=== PATIENT | male | born 1945 | race Caucasian/White ===

== ENCOUNTER 2019-04-16 12:27 | Outpatient (CLI) | payer MEDICARE, SELFPAY ==
[2019-04-19 13:21] LABS: Lyme Disease Ab (IgM), Blot Negative (Negative); Lyme Disease Ab(IgG), Blot Negative (Negative)
== END 2019-04-16 12:28 | disposition home or self-care (01) ==
PROVIDERS: PCP Internal Medicine; Visit Provider Internal Medicine
DX: A69.22 Other neurologic disorders in Lyme disease (principal)
CPT/HCPCS: 36415; 82607; 86617

== ENCOUNTER 2019-08-25 09:32 | Outpatient (CLI) | payer MEDICARE, SELFPAY ==
--- NOTE | 2019-08-25 10:30 | NEURO_ITS ---
Patient Number: [id number] Impression: # Complains of left lower extremity weakness. 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 # Needle/EMG exam showed neurogenic changes in muscles including the Quadriceps. # Clinical correlation recommended; Higher involvement needs to be ruled out. Nerve Conduction Studies Anti Sensory Summary Table Stim Site NR Peak (ms) P-T Amp (?V) Site1 Site2 Delta-P (ms) Dist (cm) Srinivasa (m/s) Left Sup Fibular Anti Sensory (Ant Lat Mall) 14 cm 3.6 22.5 14 cm Ant Lat Mall 3.6 16.0 44 Left Sural Anti Sensory (Lat Mall) Calf 3.7 28.0 Calf Lat Mall 3.7 16.0 43 Motor Summary Table Stim Site NR Onset (ms) O-P Amp (mV) Site1 Site2 Delta-0 (ms) Dist (cm) Srinivasa (m/s) Left Peroneal Motor (Vastus Med) Ankle 4.5 0.8 Popit Ankle 13.6 42.0 31 Popit 18.1 0.8 Left Tibial Motor (Abd Ojeda Brev) Ankle 4.9 1.6 Knee Ankle 14.6 48.0 33 Knee 19.5 1.2 F Wave Studies NR F-Lat (ms) L-R F-Lat (ms) Left Peroneal (Mrkrs) (EDB) 59.77 Left Tibial (Mrkrs) (Abd Hallucis) 61.46 EMG Side Muscle Nerve Root Ins Act Fibs Amp Dur Recrt Comment Left AntTibialis Dp Br Fibular L4-5 Nml Nml Nml >12ms Reduced Left Gastroc Tibial S1-2 Nml Nml Nml >12ms Reduced Left Fibularis Long Sup Br Fibular L5-S1 Nml Nml Nml Nml Reduced Left Flex Dig Long Tibial L5-S2 Nml Nml Nml Nml Nml Left Ext Dig Brev Dp Br Fibular L5, S1 Nml Nml Nml >12ms Reduced Left AbdHallucis MedPlantar S1-2 Nml Nml Nml >12ms Reduced Left QuadratusFem QuadFemoris L4-5, S1 Nml Nml Nml >12ms Reduced MTDD
== END 2019-08-25 09:33 | disposition home or self-care (01) ==
PROVIDERS: PCP Internal Medicine; Visit Provider Internal Medicine
DX: A69.22 Other neurologic disorders in Lyme disease (principal); R53.1 Weakness
CPT/HCPCS: 95886; 95908

== ENCOUNTER 2020-07-13 09:31 | Outpatient (CLI) | payer MEDICARE, SELFPAY ==
[2020-07-13 10:05] LABS: Basophils Percent Auto 1.2 % (0.2-1.2); Eosinophils Percent Auto 0.3 % (0-4.4); Hematocrit 36.4 % (42.0-52.0); Hemoglobin 12.4 g/dL (14.0-18.0); Immature Granulocyte Absolute 0.02 K/mm3 (0.00-0.031); Immature Granulocyte Percent A 0.6 % (0-0.5); Immature Platelet Fraction Pct 5.9 % (0.9-11.2); Lymphocytes Absolute Auto 1.59 K/mm3 (0.9-3.2); Lymphocytes Percent Auto 46.4 % (18.3-44.2); Mean Corpuscular HGB Conc 34.1 g/dl (32-36); Mean Corpuscular Hemoglobin 30.2 pg (26-34); Mean Corpuscular Volume 88.6 fl (80-100); Mean Platelet Volume 10.7 fl (7.4-10.4); Monocytes Absolute Auto 0.5 K/mm3 (0.1-0.6); Monocytes Percent Auto 15.7 % (2.6-8.5); Neutrophils Absolute Auto 1.2 K/mm3 (1.3-6.7); Neutrophils Percent Auto 35.8 % (45.5-73.1); Platelet Count Result 159 k/mm3 (150-375); Red Blood Count 4.11 M/mm3 (4.6-6.20); Red Cell Distribution Width 15.4 % (11.5-14.5); White Blood Count 3.4 K/mm3 (4.5-10.0)
[2020-07-13 10:16] LABS: Cholesterol 149 mg/dL (0-200); HDL Direct 47 mg/dL; Triglycerides 109 mg/dL (<150)
[2020-07-13 10:27] LABS: LDL Cholesterol Direct 61 mg/dL
[2020-07-13 11:06] LABS: Free T4 Free Thyroxine 1.12 ng/mL (0.78-2.19)
== END 2020-07-13 09:32 | disposition home or self-care (01) ==
PROVIDERS: PCP Internal Medicine; Visit Provider Internal Medicine
DX: E78.00 Pure hypercholesterolemia, unspecified (principal); N42.9 Disorder of prostate, unspecified; R97.20 Elevated prostate specific antigen [PSA]
CPT/HCPCS: 36415; 80061; 84153; 84439; 84443; 85025; 85055

== ENCOUNTER 2020-08-21 11:57 | Emergency (ER) | payer MEDICARE, SELFPAY ==
[2020-08-21 12:09] VITALS: BP 112/76; PULSE 104; RESP 18; TEMP 38.1; O2SAT 99
--- NOTE | 2020-08-21 12:45 | ECG_ITS ---
Measurements Intervals [place] Rate: 97 P: 25 MO: 191 QRS: -31 QRSD: 98 T: 35 QT: 327 QTc: 417 Interpretive Statements SINUS RHYTHM BORDERLINE R WAVE PROGRESSION, ANTERIOR LEADS INFERIOR INFARCT, AGE INDETERMINATE ABNORMAL ECG Electronically Signed On 08-21-2020 15:23:53 CDT by Manuel Gandhi D.O.
--- NOTE | 2020-08-21 12:48 | ED.NAVMDI ---
HPI - Nausea/Vomiting/Diarrhea General Chief complaint: Nausea/Vomiting/Diarrhea Stated complaint: fever/dark urine/weakness/nausea/vomiting Source: patient and RN notes reviewed Limitations: no limitations History of Present Illness HPI Narrative: The vaccinated patient, who is active on few meds, presents with emesis. Patient states he has a shorter 1-day history of nonbilious emesis x2/day , associated with fever 102.5 , darkening urine. 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 He attributes onset to possibly being overheated while golfing the previous day. No cough, CP, loss of taste/smell, S OB. 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 Advised to go to higher-level care facility to higher level testing , because for early diagnosis of serious problems [azotemia, metabolic changes/dehydration, rhabdo, atypical appendicitis, etc], clear specific symptoms do not develope until later Related Data Home Medications Medication Instructions Recorded Confirmed atorvastatin 08/21/20 eszopiclone mg 08/21/20 Allergies Allergy/AdvReac Type Severity Reaction Status Date / Time No Known Allergies Allergy Unknown Verified 04/10/07 20:17 Review of Systems Review of Systems: Narrative: General/Constitutional: No weight loss, REPORTS fever Eyes: N0: Redness,discharge Ears/Nose/Throat: No: Epistaxis,ear discharge Respiratory: Denies: Hemoptysis Gastrointestinal: REPORTS vomiting, no Bleeding-rectal Skin: No Lumps, eruption Neurologic: No Focal Weakness,Sz Hematologic: Denies: Petechiae/Purpura Psychiatric: No: Suicida ideationl All Other Systems: Reviewed and Negative PMFSH Comments At time of signature, agree with nursing past medical, surgical, social and family history. There is no relevant family history pertinent to the presenting complaint Exam Narrative: Exam Narrative: General Appearance: Well appearing, No distress EYE: PERRLA, Conjunctiva clear Ears: External ear normal Nose: Normal nose Mouth/Throat: Normal appearing, Normal lips Neck: Supple Respiratory: Airway patent, No respiratory distress, CTA, right old thoracotomy scar Cardiovascular: RRR, 3/6 BETO Abdomen: Soft, Non-tender, No massess, No organomegaly (no rebound/ surgical signs), Hyperactive bowel sounds Musculoskeletal: Full ROM Skin: Warm, Dry Neurological: A&O x3, CN II-X intact Psychiatric: Normal mood, Normal affect Course Course Emergency Course: EKG sinus rhythm at 97, [place] 0.191, QRS 0.09, QTc 0.382; with old, inferior GA changes Q's in 3, aVF Vital Signs Vital signs: Vital Signs Temperature 100.5 F H 08/21/20 12:09 Pulse Rate 104 H 08/21/20 12:09 Respiratory Rate 18 08/21/20 12:09 Blood Pressure 112/76 08/21/20 12:09 Pulse Oximetry 99 08/21/20 12:09 Temperature 100.5 F H 08/21/20 12:09 Pulse Rate 104 H 08/21/20 12:09 Respiratory Rate 18 08/21/20 12:09 Blood Pressure 112/76 08/21/20 12:09 Pulse Oximetry 99 08/21/20 12:09 MDM - Nausea/Vomiting/Diarrhea Lab Data Labs: Urine Glucose Negative Reference Range: Negative Urine Bilirubin 1+ Reference Range: Negative Urine Ketone Negative Reference Range: Negative Urine Specific [place] 1.025 Reference Range:1.001-1.035 Urine Blood Negative Reference Range: Negative * * Urine pH 6.0 Reference Range:
[2020-08-21] MEDS: ONDANSETRON HCL ODT 4 MG TABLET PO (13:10)
== END 2020-08-21 13:33 | disposition left against medical advice (07) ==
PROVIDERS: Emergency Provider Emergency Medicine; PCP Internal Medicine
DX: R50.9 Fever, unspecified (principal); R11.11 Vomiting without nausea; R01.1 Cardiac murmur, unspecified; Z20.822 Contact with and (suspected) exposure to COVID-19
CPT/HCPCS: 81003; 87426; 93005; 99213; A9270; C9803; G0463

== ENCOUNTER 2020-08-22 14:55 | Outpatient (CLI) | payer MEDICARE, SELFPAY ==
[2020-08-22 16:05] LABS: Hematocrit 31.4 % (42.0-52.0); Hemoglobin 10.7 g/dL (14.0-18.0); Mean Corpuscular HGB Conc 34.1 g/dl (32-36); Mean Corpuscular Hemoglobin 29.3 pg (26-34); Mean Platelet Volume 12.6 fl (7.4-10.4); Platelet Count Result 46 k/mm3 (150-375); Red Blood Count 3.65 M/mm3 (4.6-6.20); Red Cell Distribution Width 15.2 % (11.5-14.5)
[2020-08-22 16:13] LABS: Alanine Aminotransferase 131 U/L (4-50); Alkaline Phosphatase 130 U/L (38-126); Anion Gap 7 mmol/L (8-16); Aspartate Amino Transferase 131 U/L (17-59); Bilirubin,Total 2.5 mg/dL (0.2-1.3); Blood Urea Nitrogen 22 mg/dL (9-20); Calcium 9.3 mg/dL (8.4-10.2); Carbon Dioxide 29 mmol/L (22-30); Chloride 96 mmol/L (98-107); Estimated Glomerular Filt Rate > 60; Glucose 129 mg/dL (75-110); Potassium 4.3 mmol/L (3.4-5.0); Sodium 132 mmol/L (137-145)
[2020-08-22 19:08] LABS: White Blood Count 1.9 K/mm3 (4.5-10.0)
[2020-08-22 19:14] LABS: Band Neutrophils Percent 2 % (0-6); Lymphocytes Absolute Manual 1.02 K/mm3 (1.1-4.5); Monocytes Absolute Manual 0.11 K/mm3 (0.1-0.90); Monocytes Percent Manual 6 % (3-9); Neutrophils Absolute Manual 0.76 K/mm3 (1.3-6.7); Neutrophils Percent Manual 38 % (46-73); Nucleated Red Blood Cells 1 %; Total Cells Counted 50
[2020-08-22 19:15] LABS: Anisocytosis 2+ (NORMAL); Platelet Estimate Decreased (Adequate)
== END 2020-08-22 14:56 | disposition home or self-care (01) ==
PROVIDERS: PCP Internal Medicine; Visit Provider Internal Medicine
DX: R50.9 Fever, unspecified (principal)
CPT/HCPCS: 36415; 80053; 85025; 85055; 87040

== ENCOUNTER 2020-08-23 13:53 | Outpatient (CLI) | payer MEDICARE, SELFPAY ==
[2020-08-23 17:40] LABS: Hepatitis B Surface Antigen Negative (Negative)
[2020-08-23 17:46] LABS: HAV RESULT Negative (Negative); Hepatitis B Core IgM Result Negative (Negative)
[2020-08-23 17:57] LABS: Hepatitis C Virus Antibody Negative (Negative)
[2020-08-26 15:59] LABS: CMV IgM Antibody <30.00 AU/mL (<30.00)
[2020-08-27 21:54] LABS: GGT 165 U/L (3-70)
== END 2020-08-23 13:54 | disposition home or self-care (01) ==
PROVIDERS: PCP Internal Medicine; Visit Provider Internal Medicine
DX: R74.01 Elevation of levels of liver transaminase levels (principal)
CPT/HCPCS: 36415; 80074; 82977; 86644; 86645

== ENCOUNTER 2020-08-30 12:11 | Outpatient (CLI) | payer MEDICARE, SELFPAY ==
[2020-08-30 13:00] LABS: Basophils Percent Auto 0.7 % (0.2-1.2); Hematocrit 31.4 % (42.0-52.0); Hemoglobin 10.2 g/dL (14.0-18.0); Immature Granulocyte Absolute 0.06 K/mm3 (0.00-0.031); Immature Granulocyte Percent A 4.1 % (0-0.5); Lymphocytes Absolute Auto 0.67 K/mm3 (0.9-3.2); Lymphocytes Percent Auto 45.9 % (18.3-44.2); Mean Corpuscular HGB Conc 32.5 g/dl (32-36); Mean Corpuscular Hemoglobin 29.5 pg (26-34); Mean Corpuscular Volume 90.8 fl (80-100); Mean Platelet Volume 11.1 fl (7.4-10.4); Monocytes Absolute Auto 0.2 K/mm3 (0.1-0.6); Neutrophils Absolute Auto 0.5 K/mm3 (1.3-6.7); Neutrophils Percent Auto 36.3 % (45.5-73.1); Platelet Count Result 117 k/mm3 (150-375); Red Blood Count 3.46 M/mm3 (4.6-6.20); Red Cell Distribution Width 16.5 % (11.5-14.5)
[2020-08-30 13:09] LABS: Alanine Aminotransferase 116 U/L (4-50); Alkaline Phosphatase 113 U/L (38-126); Aspartate Amino Transferase 59 U/L (17-59); Bilirubin,Total 1.3 mg/dL (0.2-1.3)
[2020-08-30 14:17] LABS: White Blood Count 1.5 K/mm3 (4.5-10.0)
== END 2020-08-30 12:12 | disposition home or self-care (01) ==
LOC: ANHLAB 12:13
PROVIDERS: PCP Internal Medicine
DX: D72.819 Decreased white blood cell count, unspecified (principal); K76.89 Other specified diseases of liver
CPT/HCPCS: 36415; 80076; 85025

== ENCOUNTER 2020-09-01 21:42 | Inpatient (IN) | payer MEDICARE, SELFPAY ==
--- NOTE | ~2020-09-01 | CT_ITS ---
EXAMINATION: CT chest abdomen pelvis wo con DATE: 09/01/2020 23:32 INDICATION: Neutropenia. Fever. TECHNIQUE: Computed tomography (CT) of the chest, abdomen, and pelvis was performed without intraveno us contrast. Automated exposure control and iterative reconstruction technique were employed. The dos e-length product was 1366.97 mGy-cm. COMPARISON: None FINDINGS: CHEST CT: Mild emphysema. No pneumonia, pulmonary edema or other pulmonary infiltrates, pleural effusion or pne umothorax. Heart size is normal. Atherosclerotic coronary artery calcification is. Aortic valve calci fication. No pericardial effusion. No pathologically enlarged thoracic lymphadenopathy. Multiple old healed right rib fractures. ABDOMEN/PELVIS CT: Liver, gallbladder, pancreas, bilateral adrenal glands and right kidney are normal. Bilateral approxi mately 1 cm low-attenuation renal cysts. 1 mm nonobstructing stone at a lower pole calyx of the left kidney. Splenomegaly measuring 17.5 cm in craniocaudal length. Bowels including the appendix are norm al. Bladder is normal. Prostatomegaly. No free intraperitoneal gas or fluid. No pathologically enlarg ed abdominal or pelvic lymphadenopathy. Small fat-containing left inguinal hernia. Severe lower lumba r spondylosis. IMPRESSION: 1. Splenomegaly. No other acute intrathoracic, abdominal or pelvic process. 2. 1 mm nonobstructing left renal stone. 3. Small fat-containing left inguinal hernia. 4. Mild emphysema. Reviewed, dictated and finalized at location A.
--- NOTE | ~2020-09-01 | XR_ITS ---
EXAMINATION: XR chest 2V DATE: 09/01/2020 22:52 INDICATION: Fever, weakness and nausea TECHNIQUE: frontal and lateral views of the chest were obtained. COMPARISON: Chest radiograph dated 11/21/2004 FINDINGS: The lungs remain clear with no focal airspace opacities, pulmonary edema, pleural effusion or pneumot horax. The cardiomediastinal silhouette is normal. And seen are multiple old healed right-sided rib f ractures. IMPRESSION: 1. No acute cardiopulmonary disease. Reviewed, dictated and finalized at location A.
--- NOTE | ~2020-09-01 | BM_ITS ---
EXAMINATION: CCL bone marrow asp w bx diag ORDER COMPLETED DATE: 09/05/2020 13:18 INDICATION: Pancytopenia TECHNIQUE: A time-out was performed to verify the patient's name, date of , and procedure to b e performed. The procedure including the risks, benefits, and alternatives was discussed with the pat ient. Risks discussed included bleeding and infection. The patient understood the risks and agreed to proceed. The skin overlying the right posterior iliac spine was prepped and draped in usual sterile fashion. Anesthetic was administered with 1% lidocaine subcutaneously. Systemic analgesia was provide d with 50 mcg fentanyl IV. An 11 gauge needle was inserted into the ilium with fluoroscopic guidance. Bone marrow was aspirated. An 8 gauge needle was then inserted into the ilium with fluoroscopic guid ance. A core bone marrow biopsy was obtained. There were no immediate complications. Fluoroscopy expo sure time was 0.1 minutes. The total number of images was 10. FINDINGS: Real-time fluoroscopy demonstrates a marker overlying the right posterior iliac spine. IMPRESSION: 1. Successful fluoro-guided bone marrow aspiration. 2. Successful fluoro-guided bone marrow core biopsy. Reviewed, dictated and finalized at location A.
[2020-09-01 21:46] VITALS: BP 112/58; PULSE 105; RESP 18; TEMP 39.2; O2SAT 98
[2020-09-01 22:06] LABS: Hematocrit 30.8 % (42.0-52.0); Hemoglobin 10.3 g/dL (14.0-18.0); Immature Platelet Fraction Pct 7.9 % (0.9-11.2); Mean Corpuscular HGB Conc 33.4 g/dl (32-36); Mean Corpuscular Hemoglobin 29.3 pg (26-34); Mean Corpuscular Volume 87.7 fl (80-100); Mean Platelet Volume 10.7 fl (7.4-10.4); Platelet Count Result 84 k/mm3 (150-375); Red Blood Count 3.51 M/mm3 (4.6-6.20); Red Cell Distribution Width 16.4 % (11.5-14.5)
[2020-09-01 22:11] LABS: White Blood Count 0.9 K/mm3 (4.5-10.0)
[2020-09-01 22:15] LABS: Alanine Aminotransferase 83 U/L (4-50); Albumin Level 4.2 g/dL (3.5-5.1); Alkaline Phosphatase 126 U/L (38-126); Anion Gap 12 mmol/L (8-16); Aspartate Amino Transferase 65 U/L (17-59); Bilirubin,Total 2.1 mg/dL (0.2-1.3); Blood Urea Nitrogen 16 mg/dL (9-20); Calcium 9.2 mg/dL (8.4-10.2); Carbon Dioxide 26 mmol/L (22-30); Chloride 92 mmol/L (98-107); Estimated CRCL calculation 69 ml/min; Estimated Glomerular Filt Rate > 60; Glucose 122 mg/dL (65-110); Potassium 4.3 mmol/L (3.4-5.0); Sodium 130 mmol/L (137-145)
[2020-09-01 22:24] LABS: Eosinophils Absolute Manual 0.39 K/mm3 (0.02-0.5); Eosinophils Percent Manual 44 % (0-4); Metamyelocytes Percent 32 %; Monocytes Absolute Manual 0.03 K/mm3 (0.1-0.90); Monocytes Percent Manual 4 % (3-9); Neutrophils Percent Manual 4 % (46-73); Promyelocytes Percent 16 %; Total Cells Counted 25
[2020-09-01 22:25] LABS: Anisocytosis 2+ (NORMAL); Atypical Lymphocytes Present; Platelet Estimate Decreased (Adequate)
[2020-09-01 22:26] VITALS: BP 132/58; PULSE 106; RESP 29; TEMP 38.2; O2SAT 96
--- NOTE | 2020-09-01 23:35 | PM.IMHP ---
H&P: HPI History of Present Illness Date/Time: 09/01/20 23:35 Chief Complaint: fever Narrative: This is a 74-year-old male with no significant past medical history the presented to the emergency room due to persistent fevers for the last 15 days or so patient had been to the urgent care and to his primary care physician who had ordered some blood work after receiving the blood work results he had been scheduled for CT of abdomen and pelvis according to the patient. Patient states that he has been having night sweats as well has had roughly 2 lb weight loss in the last 2 weeks he denies any muscle aches or pains, denies any rash, denies any sore throat, no nausea no vomiting no diarrhea, no cough no sputum production no shortness of breath, no palpitations he has been feeling fatigued. he had been in his usual state of health prior to these he denies use of any medication or any exposure to chemical substances or radiation in the past. Blood work showed decreased number of neutrophils and platelets and hemoglobin also patient states that he felt dehydrated 2 weeks ago and was urinating dean urine for several days . Review of Systems Review of Systems: Narrative: fever Constitutional: Constitutional: Reports fatigue, Reports fever(s) and Reports night sweats Eyes: Eyes: Denies change in vision ENT: Denies dysphagia, Denies nasal congestion, Denies nasal discharge, Denies nasal obstruction and Denies odynophagia Cardiovascular: Cardiovascular: Denies chest pain, Denies irregular heart rhythm, Denies claudication, Denies lightheadedness, Denies palpitations, Denies dyspnea and Denies orthopnea Respiratory: Respiratory: Denies cough and Denies dyspnea Gastrointestinal: Gastrointestinal: Denies diarrhea, Denies nausea and Denies vomiting Genitourinary: Genitourinary: Reports no additional male genitourinary complaints Musculoskeletal: Musculoskeletal: Denies back pain, Denies myalgias, Denies arthralgias, Denies joint swelling, Denies muscle cramps and Denies muscle weakness Integumentary/Breasts: Skin/Breast: Denies rash Neurologic: Denies focal weakness, Denies Sensory deficit (Neuro) and Denies weakness Psychiatric: Psychiatric: Reports no additional psychiatric complaints Endocrine: Endocrine: Reports no additional endocrine complaints Hematologic/Lymphatic: Hematologic/Lymphatic: Reports no additional hematologic/lymphatic complaints Allergic/Immunologic: Allergic/Immunologic: Reports no additional allergic/immunologic complaints Meds Home Medications and Allergies Home Medications Medication Instructions Recorded Confirmed Type atorvastatin 08/21/20 History Allergies Allergy/AdvReac Type Severity Reaction Status Date / Time No Known Allergies Allergy Unknown Verified 09/01/20 22:27 Vital Signs Vital Signs - 24 hr 09/01/20 21:46 09/01/20 22:26 Temperature 102.5 F H 100.7 F H Pulse Rate 105 H 106 H Respiratory Rate 18 29 H Blood Pressure 112/58 L 132/58 L Pulse Oximetry 98 96 Exam Narrative: Exam Narrative: patient is laying in gurney Const: General: cooperative, comfortable, no acute distress, well developed, alert, awake and other ( well-appearing) Nutritional Appearance: average body habitus Orientation/consciousness: patient oriented x3 HENMT: Head: normal to inspection, normocephalic and atraumatic Ears: hearing grossly normal bilaterally General nose exam: Normal external nose present Face and sinus: normal facial exam Mouth: Yes Normal oral and palatal mucosa present Eyes: General: appearance normal, both eyes and all related structures Sclera: sclerae normal Pupils: Equal, round and reactive pupils present EOM: EOMs intact bilaterally Neck: Neck: full ROM, no lymphadenopathy, supple, no lymphadenopathy noted and no JVD Thyroid: thyroid normal Lymphatic: no lymphadenopathy noted Resp: Effort & Inspection: normal respiratory effort and able to speak in complete sentences
--- NOTE | 2020-09-01 23:44 | ED.FEVER ---
HPI - Fever General Chief Complaint: Fever Stated Complaint: Fever Time Seen by Provider: 09/01/20 22:30 Source: patient Mode of arrival: ambulatory Limitations: no limitations History of Present Illness HPI Narrative: 75-year-old male Basically healthy Here for fever Began to have intermittent fevers about 2 weeks ago No focal symptoms to suggest a source that he recalls, does not have a cough diarrhea abdominal pain urinary symptoms etc. No history of any environmental exposure or tick bite mosquito bite anything like that that he remembers either He was seen at an urgent care shortly after the onset and had an unremarkable physical exam but did not go to the hospital for any labs He did subsequently have a couple of visits with his primary care doctor and had some outpatient cultures sent which were negative and had chemistries with very modest abnormalities of his LFTs done and had CBCs done which are establishing a downward trend in white cells and platelets Because his most recent white count was 1.5 and he was febrile again today he was directed to the ED, where we confirmed the fever and a white count of only 900 He does not take any medications that ought to be associated with bone marrow suppression There are still no focal symptoms to suggest a source of fever Related Data Home Medications Medication Instructions Recorded Confirmed atorvastatin 08/21/20 Allergies Allergy/AdvReac Type Severity Reaction Status Date / Time No Known Allergies Allergy Unknown Verified 09/01/20 22:27 Review of Systems Review of Systems: All systems reviewed & are unremarkable except as noted in HPI and below Constitutional: Constitutional: Reports no additional constitutional complaints, Reports chills, Reports fatigue, Reports fever(s) and Denies headache(s) Eyes: Eyes: Reports no additional eye complaints and Denies change in vision ENT: Denies dysphagia, Denies headache(s) and Denies sore throat Cardiovascular: Cardiovascular: Denies chest pain and Denies dyspnea Respiratory: Respiratory: Denies cough and Denies dyspnea Gastrointestinal: Gastrointestinal: Denies abdominal pain, Denies diarrhea and Denies vomiting Genitourinary: Genitourinary: Denies dysuria and Denies urinary frequency Musculoskeletal: Musculoskeletal: Reports myalgias, Denies deformity, Denies arthralgias, Denies joint swelling and Denies numbness Integumentary/Breasts: Skin/Breast: Denies erythema, Denies rash and Denies wounds Neurologic: Denies headache(s), Denies focal weakness and Denies numbness Psychiatric: Psychiatric: Reports no additional psychiatric complaints Endocrine: Endocrine: Reports no additional endocrine complaints Hematologic/Lymphatic: Hematologic/Lymphatic: Reports no additional hematologic/lymphatic complaints Allergic/Immunologic: Allergic/Immunologic: Reports no additional allergic/immunologic complaints Exam Const: General: cooperative, healthy appearing, no acute distress and alert Orientation/consciousness: patient oriented x3 (alert) HENMT: Head: normal to inspection, normocephalic, atraumatic and no contusions Ears: external ears normal General nose exam: no epistaxis Mouth: Yes Normal oral and palatal mucosa present and Yes moist mucous membranes Eyes: Conjunctivae: conjunctivae normal and normal conjunctivae EOM: EOMs intact bilaterally Neck: Neck: normal visual inspection, no lymphadenopathy, no meningeal signs, supple and no JVD Resp: Effort & Inspection: normal respiratory effort and not labored Auscultation: clear to auscultation bilaterally, no rales, no rhonchi, no wheezes and other (BS =) Cardio: Rate: regular rate Rhythm: regular rhythm Heart sounds: Murmur heart sound present (2/6 to 3/6 systolic murmur over the entire precordium) GI: Inspection: non-distended GI Palp: Yes Soft to palpation and No Tenderness to palpation present (GI) Other: No hepatosplenomegaly : General: Y
[2020-09-01 23:50] VITALS: BP 137/72; PULSE 106; RESP 26; O2SAT 97
[2020-09-01 23:56] LABS: Immature Reticulocyte Fraction 11.4 % (3.0-15.9); Reticulocyte Hemoglobin Conten 33.1 pg (28.2-35.7); Reticulocyte Percent 5.23 % (0.7-4.3); Reticulocytes Absolute 0.17 B/L (32.2-175.7)
[2020-09-01 23:58] LABS: Creatine Kinase 32 U/L (55-170); Lactate Dehydrogenase 979 U/L (313-618)
[2020-09-01 23:59] LABS: Lactic Acid Reflex 1.2 mmol/L (0.7-2.1)
[2020-09-02] VITALS (8 sets, daily range): BP systolic 103–135; BP diastolic 60–73; PULSE 86–103; RESP 16–20; TEMP 36.4–39.7; O2SAT 100; BMI 25.2
[2020-09-02 00:01] LABS: Add Urine Microscopic? YES; Appearance Urine Clear (Clear); Bilirubin Urine Negative (Negative); Blood Urine Negative (Negative); Color Urine Amber (Yellow); Glucose Urine UA Negative (Negative); Ketones Urine Trace mg/dL (Negative); Leukocyte Esterase Ur Negative LEU/UL (Negative); Mucus Urine Rare /lpf; Nitrate Urine Negative (Negative); Protein Urine 1+ mg/dL (Negative); RBC Urine 0-2 /hpf (0-2); WBC Urine 0-3 /hpf
[2020-09-02] MEDS: LACTATED RINGERS 1,000 ML 999 ML IV CONT (00:24)
[2020-09-02 00:32] LABS: Iron 28 ug/dL (49-181)
[2020-09-02 00:42] LABS: Percent Iron Saturation 9 % (20-50)
--- NOTE | 2020-09-02 01:11 | ADMGEN ---
This patient, Mir Adrian, was admitted to 2 Medical Room [facility]- @ 0100. Patient/family oriented to hospital policies and general routines including ID bracelet, bed and alarms, visiting hours, pain management, procedures, bathroom and other care routines, personal items, smoking policy, room service/diet, and visiting hours. Information on how to activate the Rapid Response Team has been discussed. Patient/Family are encouraged to report perceived risks to care and to ask questions if they do not understand what they are told or what they should do.
[2020-09-02] MEDS: LACTATED RINGERS 1,000 ML 150 ML IV CONT (01:12)
[2020-09-02] MEDS: ACETAMINOPHEN 325 MG TABLET 650 MG PO ×2 (01:13→18:31)
[2020-09-02 01:34] LABS: Transferrin 211 mg/dL (206-381)
--- NOTE | 2020-09-02 06:00 | ECHO_ITS ---
Patient Info Name: Mir Zamarripa Range Age: 75 years : 1945 Gender: Male Ht: 72 in Wt: 202 lbs BSA: 2.17 m2 HR: 108 bpm BP: 135 / 73 mmHg Heart Rhythm: Sinus Rhythm, Tachycardia Technical Quality: Good Exam Date: 09/02/2020 7:40 AM Exam Location: [facility] Exam Room: 240 Patient Status: Inpatient Admit Date: 09/01/2020 Staff Ordering Physician: Brandon Noel MD Speech Therapy Assistant: Gabriela Burnham RDCS Attending Provider: Gabriel Blair PA-C Referring Physician: Bert DYE; Exam Type: CA echo doppler color flow Study Info Indications - murmur fever Complete two-dimensional, color flow and Doppler transthoracic echocardiogram is performed. Summary 1. Complete two-dimensional, color flow and Doppler transthoracic echocardiogram is performed. 2. Left ventricular chamber dimension is normal. 3. Left ventricular systolic function is normal, estimated at 65-70%. 4. There is mildly increased left ventricular wall thickness. 5. The aortic valve is not well visualized although probable trileaflet.. 6. There is mild aortic valve stenosis with a peak velocity of 353 cm/s, mean gradient of 31 mmHg, and aortic valve area of 1.7 cm2. Mild calcification of aortic valve leaflets. 7. There is mild aortic valve regurgitation. 8. Cannot rule out aortic valve vegetation visualized. Measured 0.8cmx0.7cm echodense structure unable to be further characterized, however, vegetation a consideration possibly associated with noncoronary cusp. 9. There is trace mitral valve regurgitation. 10. The mitral valve has normal leaflets. No clear mobile echodensity noted. 11. Recommend transesophageal echocardiogram if clinically indicated. Recommendations * Recommend transesophageal echocardiogram if clinically indicated. Left Ventricle Left ventricular chamber dimension is normal. Left ventricular systolic function is normal, estimated at 65-70%. There is mildly increased left ventricular wall thickness. The left ventricular diastolic function is grade I diastolic dysfunction. Right Ventricle Right ventricular chamber dimension is normal. Right ventricular systolic function is normal. Left Atria Left atrial chamber dimension is mildly enlarged. Right Atria Right atrial chamber dimension is mildly enlarged. Aortic Valve The aortic valve is not well visualized although probable trileaflet.. There is mild aortic valve stenosis with a peak velocity of 353 cm/s, mean gradient of 31 mmHg, and aortic valve area of 1.7 cm2. Mild calcification of aortic valve leaflets. There is mild aortic valve regurgitation. Cannot rule out aortic valve vegetation visualized. Measured 0.8cmx0.7cm echodense structure unable to be further characterized, however, vegetation a consideration possibly associated with noncoronary cusp. Pulmonic Valve The pulmonic valve is not well visualized. There is trace pulmonic regurgitation. Mitral Valve The mitral valve has normal leaflets. No clear mobile echodensity noted. There is trace mitral valve regurgitation. The mitral valve annulus is mildly calcified. Tricuspid Valve The tricuspid valve leaflets are normal. There is trace tricuspid valve regurgitation. Mild pulmonary hypertension, estimated pulmonary arterial systolic pressure is 36 mmHg. Pericardium/Pleural The pericardium appears normal. There is trivial pericardial effusion. Inferior Vena Cava Normal inferior vena cava with >50% collapse upon inspiration consistent with normal right atrial
[2020-09-02 07:58] LABS: Basophils Percent Auto 1.4 % (0.2-1.2); Hematocrit 27.7 % (42.0-52.0); Hemoglobin 9.2 g/dL (14.0-18.0); Immature Granulocyte Absolute 0.02 K/mm3 (0.00-0.031); Immature Granulocyte Percent A 2.8 % (0-0.5); Immature Platelet Fraction Pct 8.5 % (0.9-11.2); Lymphocytes Absolute Auto 0.23 K/mm3 (0.9-3.2); Lymphocytes Percent Auto 31.9 % (18.3-44.2); Mean Corpuscular HGB Conc 33.2 g/dl (32-36); Mean Corpuscular Hemoglobin 29.3 pg (26-34); Mean Corpuscular Volume 88.2 fl (80-100); Mean Platelet Volume 10.4 fl (7.4-10.4); Monocytes Absolute Auto 0.1 K/mm3 (0.1-0.6); Monocytes Percent Auto 11.1 % (2.6-8.5); Neutrophils Absolute Auto 0.4 K/mm3 (1.3-6.7); Neutrophils Percent Auto 52.8 % (45.5-73.1); Platelet Count Result 61 k/mm3 (150-375); Red Blood Count 3.14 M/mm3 (4.6-6.20); Red Cell Distribution Width 16.4 % (11.5-14.5)
[2020-09-02] MEDS: FAMOTIDINE 20 MG/2 ML VIAL IV PUSH ×2 (08:03→19:55)
[2020-09-02 08:06] LABS: White Blood Count 0.7 K/mm3 (4.5-10.0)
[2020-09-02 08:12] LABS: Anion Gap 7 mmol/L (8-16); Blood Urea Nitrogen 12 mg/dL (9-20); Calcium 8.4 mg/dL (8.4-10.2); Carbon Dioxide 28 mmol/L (22-30); Chloride 98 mmol/L (98-107); Estimated CRCL calculation 77 ml/min; Estimated Glomerular Filt Rate > 60; Glucose 111 mg/dL (65-110); Magnesium 1.8 mg/dL (1.6-2.3); Potassium 4.1 mmol/L (3.4-5.0); Sodium 133 mmol/L (137-145)
--- NOTE | 2020-09-02 09:11 | PM.IMPN ---
Progress Note: A&P Assessment and Plan (1) Pancytopenia with fever: Code(s): D61.818 - Other pancytopenia; R50.81 - Fever presenting with conditions classified elsewhere Status: Acute Assessment and Plan: Dr. Uribe consulted and appreciate rec. CT C/A/P shows splenomegaly. WBC, Hgb, platelets continue to drop. No s/sx of acute blood loss. Iron panel consistent with XIN. BCx pending Pt slightly tachycardic, afebrile this morning. Cont cefepime 2G IV Q8hr Await further rec from Heme/onc; appreciate input vitals as per unit protocol' Cont IV fluids Await Echo results Monitor (2) Fever of unknown origin: Code(s): R50.9 - Fever, unspecified Status: Acute Assessment and Plan: As above. Await further rec from Dr. Uribe. Will consider ID consultation if fevers persistent. (3) Neutropenia: Code(s): D70.9 - Neutropenia, unspecified Status: Acute Assessment and Plan: As above. neutrophilic count of 400 today. continue to monitor Subjective Date/time seen: 09/02/20 09:11 Interval history: Pt a pleasant 75 yo M without significant medical history who is seen in follow up today for pancytopenia with fever. Pt states he feels okay today, although did not get much sleep last night and is tired. His main complaint is constipation; req laxative; passing gas okay. Slightly feverish. No other complaints. Denies headaches, dizziness, lightheadedness, cp/palpitations, sob/cough, n/v/d, abd pain, dysuria, hematuria, cloudy urine, calf pain/swelling. Review of Systems Review of Systems: All systems reviewed & are unremarkable except as noted in HPI and below Exam Const: General: comfortable, no acute distress, well developed and alert Nutritional Appearance: well nourished Orientation/consciousness: patient oriented x3 HENMT: Head: normocephalic and atraumatic Ears: hearing grossly normal bilaterally and external ears normal General nose exam: Normal external nose present Eyes: General: appearance normal, both eyes and all related structures EOM: EOMs intact bilaterally Neck: Neck: normal visual inspection, trachea midline and supple Resp: Effort & Inspection: normal respiratory effort Auscultation: clear to auscultation bilaterally Cardio: Rate: tachycardic Rhythm: regular rhythm Heart sounds: S1 normal heart sound present, S2 normal heart sound present and Murmur heart sound present systolic GI: GI Palp: No abdominal tenderness and Yes Soft to palpation Auscultation: normal bowel sounds Skin: General skin exam: no rashes or lesions noted and pallor Neuro: General: patient oriented x3 Speech: normal speech Extrem: General: normal to inspection and no clubbing, cyanosis or edema Psych: Mental Status: mental status grossly normal Affect: normal affect Objective Data Vital Signs Vital Signs: Last Vital Signs Temp 37.1 C 09/02/20 06:00 Pulse 100 09/02/20 06:00 Resp 16 09/02/20 06:00 BP 124/65 09/02/20 06:00 Pulse Ox 100 09/02/20 06:00 Intake/Output Intake/Output: Intake & Output 08/30/20 08/31/20 09/01/20 09/02/20 23:59 23:59 23:59 23:59 Intake Total 1550 Output Total 500 Balance 1050 Meds/Results Medications: Active Medications Generic Name Dose Route Start Last Admin Trade Name Freq PRN Reason Stop Dose Admin Acetaminophen 650 mg 09/01/20 23:39 09/02/20 01:13 Acetaminophen 325 Mg Tablet PO 650 mg Q4H PRN Administration Mild Pain (1-3) or Fever Famotidine 20 mg 09/02/20 09:00 09/02/20 08:03 Famotidine 20 Mg/2 Ml Vial IV PUSH 20 mg Q12HR TANNER Administration Vancomycin HCl 1,500 mg in 500 mls @ 333.333 mls/hr 09/01/20 23:00 09/02/20 01:55 Vancomycin 1,500 Mg/D5w 500 Ml IVPB Infused Q18H TANNER Infusion Lactated Ringer's 1,000 mls @ 75 mls/hr 09/01/20 23:40
[2020-09-02] MEDS: LACTATED RINGERS 1,000 ML 75 ML IV CONT (09:43)
[2020-09-03] VITALS (9 sets, daily range): BP systolic 105–128; BP diastolic 57–63; PULSE 105–109; RESP 16–20; TEMP 36.4–39.1; O2SAT 95–100
[2020-09-03] MEDS: ACETAMINOPHEN 325 MG TABLET 650 MG PO ×2 (05:16→20:27)
[2020-09-03] MEDS: LACTATED RINGERS 1,000 ML 75 ML IV CONT (05:17)
[2020-09-03 06:40] LABS: Hematocrit 25.8 % (42.0-52.0); Hemoglobin 8.8 g/dL (14.0-18.0); Immature Granulocyte Absolute 0.01 K/mm3 (0.00-0.031); Immature Platelet Fraction Pct 11.2 % (0.9-11.2); Lymphocytes Absolute Auto 0.17 K/mm3 (0.9-3.2); Lymphocytes Percent Auto 34.7 % (18.3-44.2); Mean Corpuscular HGB Conc 34.1 g/dl (32-36); Mean Corpuscular Hemoglobin 29.5 pg (26-34); Mean Corpuscular Volume 86.6 fl (80-100); Mean Platelet Volume 11.5 fl (7.4-10.4); Monocytes Absolute Auto 0.1 K/mm3 (0.1-0.6); Monocytes Percent Auto 10.2 % (2.6-8.5); Neutrophils Absolute Auto 0.3 K/mm3 (1.3-6.7); Neutrophils Percent Auto 51.1 % (45.5-73.1); Platelet Count Result 37 k/mm3 (150-375); Red Blood Count 2.98 M/mm3 (4.6-6.20); Red Cell Distribution Width 15.9 % (11.5-14.5)
[2020-09-03 06:48] LABS: White Blood Count 0.5 K/mm3 (4.5-10.0)
[2020-09-03 06:49] LABS: Alanine Aminotransferase 60 U/L (4-50); Albumin Level 3.2 g/dL (3.5-5.1); Alkaline Phosphatase 91 U/L (38-126); Anion Gap 8 mmol/L (8-16); Aspartate Amino Transferase 63 U/L (17-59); Bilirubin,Total 1.8 mg/dL (0.2-1.3); Blood Urea Nitrogen 14 mg/dL (9-20); Calcium 8.4 mg/dL (8.4-10.2); Carbon Dioxide 25 mmol/L (22-30); Chloride 94 mmol/L (98-107); Estimated CRCL calculation 86 ml/min; Estimated Glomerular Filt Rate > 60; Glucose 112 mg/dL (65-110); Magnesium 1.7 mg/dL (1.6-2.3); Potassium 3.5 mmol/L (3.4-5.0); Sodium 127 mmol/L (137-145)
--- NOTE | 2020-09-03 07:46 | PM.IMPN ---
Progress Note: A&P Assessment and Plan (1) Pancytopenia with fever: Code(s): D61.818 - Other pancytopenia; R50.81 - Fever presenting with conditions classified elsewhere Status: Acute Assessment and Plan: Hematology service has been consulted with pending recommendations.. CT C/A/P shows splenomegaly. WBC, Hgb, platelets continue to drop. No s/sx of acute blood loss. Iron panel consistent with XIN. He will likely need viral studies. Check HIV status. Cultures are pending. Cont cefepime Along with vancomycin 2G IV Q8hr vitals as per unit protocol' stop IV fluids Await Echo results Monitor Maintained neutropenic precautions. (2) Fever of unknown origin: Code(s): R50.9 - Fever, unspecified Status: Acute Assessment and Plan: As above. Await further rec from Hematology service. infectious disease service has been consulted with pending recommendations. He will likely need viral studies. HIV has been ordered. Continue to monitor fever curve and leukocyte count. Follow cultures. (3) Neutropenia: Code(s): D70.9 - Neutropenia, unspecified Status: Acute Assessment and Plan: As above. continue to monitor (4) Hyponatremia: Code(s): E87.1 - Hypo-osmolality and hyponatremia Status: Acute Assessment and Plan: Serum sodium is 127 today. Continue to monitor. He is asymptomatic. (5) Constipation: Code(s): K59.00 - Constipation, unspecified Status: Acute Assessment and Plan: Will switch MiraLax to give on the daily basis. Will give 1 dose of lactulose. If he continued to have constipation then may get a KUB tomorrow and if there is no signs of obstruction then give Dulcolax /lactulose again in the a.m.. Subjective Date/time seen: 07/18/21 07:46 Interval history: Pt a pleasant 75 yo M without significant medical history who is seen in follow up today for pancytopenia with fever. He still spiking fever with the T-max of 38.4?. He is complaining of abdominal discomfort because of constipation is he has not moved his bowel in the last 7 days. It is not tender. He denied have any nausea vomiting. He denied have any cough shortness of breath chest pain. He denied have any rash or any urinary symptoms. He denied have any recent travel. Review of Systems Review of Systems: All systems reviewed & are unremarkable except as noted in HPI and below Exam Narrative: Exam Narrative: patient is laying in rney Const: General: cooperative, comfortable, no acute distress and other ( well-appearing) HENMT: General nose exam: no epistaxis Neck: Neck: supple and no lymphadenopathy noted Resp: Effort & Inspection: normal respiratory effort, able to speak in complete sentences and not labored Auscultation: clear to auscultation bilaterally, no crackles, no rales, no rhonchi, no wheezes and other (BS =) Cardio: Jugular venous distension: no JVD Rate: regular rate and tachycardic Heart sounds: S1 normal heart sound present, S2 normal heart sound present and Murmur heart sound present systolic GI: Inspection: normal to inspection and non-distended Other: No hepatosplenomegaly Skin: General skin exam: no jaundice and pallor Neuro: General: patient oriented x3, moves all extremities, no meningeal signs and CN's II-XI intact bilaterally Extrem: General: no pedal edema Psych: Mental Status: mental status grossly normal Affect: normal affect Attitude: cooperative Objective Data Vital Signs Vital Signs: Vital Signs - 24 hr 09/02/20 17:36 09/02/20 18:31 09/02/20 19:31 Temperature 37.3 C 38.1 C H 36.4 C L Pulse Rate Respiratory Rate Blood Pressure Pulse Oximetry 09/02/20 22:00 09/03/20 05:16 09/03/20 06:00 Temperature 36.4 C L 38.1 C H 38.2 C H Pulse Rate 8
[2020-09-03] MEDS: LACTULOSE 20 GM/30 ML UDC PO (09:11)
[2020-09-03] MEDS: polyethylene glycoL 3350 17 GM POWD.PACK PO (09:11)
[2020-09-03] MEDS: MAGNESIUM SULF 2 GM/WATER 50ML 2 GM/50 ML BAG IVPB (09:11)
--- NOTE | 2020-09-03 17:25 | WPDCN ---
Assessment and Plan Additional Plan 1. fever of unknown origin going on for 2 weeks associated with pancytopenia and splenomegaly. Highly concerning for bone marrow disorder/malignancy. Differential diagnosis from infectious etiology include viral syndrome including cytomegalovirus, Karishma-Phillips virus. Other differential diagnosis from bacterial include ehrlichiosis versus Borreliaosis. Endemic mycosis also should be in the differential diagnosis patient early disseminated histoplasmosis. The patient denies any recent exposure to take or tick bite. No recent travel. patient has been empirically started on cefepime and vancomycin will continue for now. 2. pancytopenia. Patient has neutropenia and WBC is more of lymphocytic and monocytic predominance. Concerning for bone marrow malignancy. Hematology-Oncology to evaluate. 3. Transaminitis. With mildly elevated AST and ALT less than 100. Will request hepatitis profile. 4. Date of service 09/03/2020 HPI Data of Consult Date/Time: 09/03/20 17:25 Requesting Physician: Gabriel Blair PA-C Primary Care Provider: Quinn Pratt, Consult Narrative Narrative: Mir Adrian is a 75 year old male With no significant past medical history except for a perirectal abscess that happened approximately 30 years ago and which was surgically drained with full recovery. Patient stated that since August 20 he has had intermittent fever associated with generalized malaise. He was seen by his primary care physician and was found to be pancytopenic as well as with elevated liver enzyme. Due to his persistent fever patient was admitted to the hospital for further investigation. I was requested to see him for investigation of fever of unknown origin. Patient currently denies any cough. No dysuria or hematuria. Intermittent sweats due to fever but otherwise no night sweats or weight loss recently. He denies any cough. No abdominal pain. No chronic diarrhea or dysuria. No skin rash. No focal neurological deficit. No syncope. He denies any recent travel or exposure to wild animals or tick bite. Review of Systems Review of Systems: All systems reviewed & are unremarkable except as noted in HPI and below PMFSH Family History Family History (Updated 09/02/20 @ 01:25 by Ricarda Cross RN) Father Diabetes mellitus Social History Social History Smoking status: Former smoker Alcohol intake: current Drinks per week: 5 Substance use: never Substance use type: does not use Gender identity (if verbalized by the patient): Male Spiritual care concerns: No Meds Home Medications and Allergies Home Medications Medication Instructions Recorded Confirmed Type atorvastatin 10 mg PO DAILY 08/21/20 09/02/20 History eszopiclone 3 mg PO HS 09/02/20 09/02/20 History Allergies Allergy/AdvReac Type Severity Reaction Status Date / Time No Known Allergies Allergy Unknown Verified 09/02/20 01:19 Vital Signs Vital Signs - 24 hr 09/02/20 17:36 09/02/20 18:31 09/02/20 19:31 Temperature 37.3 C 38.1 C H 36.4 C L Pulse Rate Respiratory Rate Blood Pressure Pulse Oximetry 09/02/20 22:00 09/03/20 05:16 09/03/20 06:00 Temperature 36.4 C L 38.1 C H 38.2 C H Pulse Rate 86 106 H Respiratory Rate 20 16 Blood Pressure 103/60 105/57 L Pulse Oximetry 100 100 09/03/20 09:10 Temperature 36.8 C Pulse Rate Respiratory Rate Blood Pressure Pulse Oximetry Exam HENMT: Head: normal to inspection Ears: hearing grossly normal bilaterally Face and sinus: normal facial exam Mouth: Yes Normal oral and palatal mucosa present Teeth and gingiva: dentition normal Throat: posterior oropharynx normal Eyes: Eyelids: eyelids normal Pupils: Equal, round and reactive pupils present Neck: Neck: normal visual inspection Thyroid: thyroid normal Lymphatic: no lymphadenopathy noted Resp: Effort & Inspection: normal respiratory effort Ausculta
[2020-09-03 20:25] LABS: HIV 1/2 Ab P24 Ag Result Negative (Negative)
[2020-09-04] VITALS (9 sets, daily range): BP systolic 90–119; BP diastolic 54–68; PULSE 103–104; RESP 16–18; TEMP 37.4–39.6; O2SAT 98–100
[2020-09-04] MEDS: ACETAMINOPHEN 325 MG TABLET 650 MG PO ×2 (05:01→14:13)
[2020-09-04 08:20] LABS: Hematocrit 26.1 % (42.0-52.0); Hemoglobin 8.9 g/dL (14.0-18.0); Immature Granulocyte Absolute 0.01 K/mm3 (0.00-0.031); Immature Granulocyte Percent A 1.6 % (0-0.5); Immature Platelet Fraction Pct 18.5 % (0.9-11.2); Lymphocytes Absolute Auto 0.26 K/mm3 (0.9-3.2); Lymphocytes Percent Auto 40.6 % (18.3-44.2); Mean Corpuscular HGB Conc 34.1 g/dl (32-36); Mean Platelet Volume 11.9 fl (7.4-10.4); Monocytes Absolute Auto 0.1 K/mm3 (0.1-0.6); Monocytes Percent Auto 15.6 % (2.6-8.5); Neutrophils Absolute Auto 0.3 K/mm3 (1.3-6.7); Neutrophils Percent Auto 42.2 % (45.5-73.1); Red Blood Count 3.07 M/mm3 (4.6-6.20); Red Cell Distribution Width 15.6 % (11.5-14.5)
[2020-09-04 08:26] LABS: White Blood Count 0.6 K/mm3 (4.5-10.0)
[2020-09-04 08:27] LABS: Platelet Count Result 23 k/mm3 (150-375)
[2020-09-04 08:34] LABS: Alanine Aminotransferase 70 U/L (4-50); Albumin Level 3.2 g/dL (3.5-5.1); Alkaline Phosphatase 111 U/L (38-126); Anion Gap 8 mmol/L (8-16); Aspartate Amino Transferase 98 U/L (17-59); Bilirubin,Total 2.2 mg/dL (0.2-1.3); Blood Urea Nitrogen 15 mg/dL (9-20); Calcium 8.2 mg/dL (8.4-10.2); Carbon Dioxide 24 mmol/L (22-30); Chloride 93 mmol/L (98-107); Estimated CRCL calculation 86 ml/min; Estimated Glomerular Filt Rate > 60; Glucose 104 mg/dL (65-110); Potassium 3.4 mmol/L (3.4-5.0); Sodium 125 mmol/L (137-145)
[2020-09-04 08:39] LABS: Estimated CRCL calculation 86 ml/min; Estimated Glomerular Filt Rate > 60
[2020-09-04] MEDS: polyethylene glycoL 3350 17 GM POWD.PACK PO (09:14)
[2020-09-04 09:39] LABS: HIV 1/2 Ab P24 Ag Result Negative (Negative)
--- NOTE | 2020-09-04 11:09 | PM.IMPN ---
Progress Note: A&P Assessment and Plan (1) Pancytopenia with fever: Code(s): D61.818 - Other pancytopenia; R50.81 - Fever presenting with conditions classified elsewhere Status: Acute Assessment and Plan: Patient continues to have pancytopenia with worsening platelet count in a very low white blood cell count - concerning for AML and other diseases such as MDS. Peripheral smear has been ordered. Will need bone marrow biopsy - Dr. Uribe consulted - platelet count [id number] without any evidence of bleeding on exam. If he starts to bleed or drops below 15,000, may consider platelet transfusion - CT C/A/P shows splenomegaly. No s/sx of acute blood loss. Iron panel consistent with XIN. -Cultures and various labs are pending. patient has been negative for HIV, hepatitis, CMV, COVID-19. B12 normal - he was vaccinated in April 2020 - continue antibiotic coverage with cefepime and vancomycin, Infectious Disease has been consulted -Other ddx less likely: drug induced cytopenia, toxin exposure etc. (2) Fever of unknown origin: Code(s): R50.9 - Fever, unspecified Status: Acute Assessment and Plan: Stated 7 days prior to admission -Many lab studies pending -No signs of infection on CT of c/a/p, UA, blood cultures -echo showing:Cannot rule out aortic valve vegetation visualized. Measured 0.8cmx0.7cmbechodense structure unable to be further characterized, however, vegetation a consideration possibly associated with noncoronary cusp. -consider WHITNEY (3) Neutropenia: Code(s): D70.9 - Neutropenia, unspecified Status: Acute Assessment and Plan: As above. continue to monitor (4) Hyponatremia: Code(s): E87.1 - Hypo-osmolality and hyponatremia Status: Acute Assessment and Plan: Serum sodium is 125 today (worsening) -will order urine sodium. Pt not on any diuretics -He appears euvolemic at this current time -Continue to monitor. He is asymptomatic. -LR stopped 09/03/20 (5) Constipation: Code(s): K59.00 - Constipation, unspecified Status: Acute Assessment and Plan: Resolved Subjective Date/time seen: 09/04/20 11:09 Interval history: Patient is a 75-year-old male here for fevers and pancytopenia. Patient was seen today and case reviewed with him. No new findings on exam or history. he confirms that he had these fevers for about a week before coming into the hospital. Prior to that, he was working out 3 days a week, playing golf, and had absolutely no issues. He said his left fever was this morning any continues to have night sweats. He has a decreased appetite and has had nausea the last couple of days. He was constipated earlier in the stay but now is able to have bowel movements. Exam Narrative: Exam Narrative: General: Well developed well nourished patient in NAD HEENT: normocephalic Neck: supple, no signs of meningitis Neuro: Alert and oriented x4. CV:RRR Resp:CTA Abd: Soft, non distended. No pain to palpation. Positive bowel sounds Extremities: No swelling, erythema, or pain to palpation. Objective Data Vital Signs Vital Signs: Vital Signs - 24 hr 09/03/20 14:00 09/03/20 20:00 09/03/20 20:20 Temperature 97.5 F L 102.3 F H Pulse Rate 105 H 109 H 109 H Respiratory Rate 20 16 16 Blood Pressure 127/63 128/62 Pulse Oximetry 99 95 95 09/03/20 20:27 09/03/20 21:27 09/03/20 21:34 Temperature 102.3 F H 100.2 F H 100.2 F H Pulse Rate Respiratory Rate Blood Pressure Pulse Oximetry 09/04/20 04:55 09/04/20 05:01 09/04/20 06:00 Temperature 103.3 F H 103.3 F H 99.5 F Pulse Rate 104 H Respiratory Rate 18 Blood Pressure 119/54 L Pulse Oximetry 98 Intake/Output Intake/Output: Intake & Output 09/01/20 09/02/20 09/03/20 09/04/20 23:59 23:59 23:59 23:59 Intake Total 4390 2450 850 Output Total 1125 1300 550 Balance 3265 1150 300 Meds/Results Medications:
--- NOTE | 2020-09-04 12:43 | PDONCCN ---
HPI - Date of Consult Date/Time: 09/04/20 12:43 Requesting Physician: Migdalia Shah PA-C Primary Care Provider: Quinn Pratt, MD - Consult Narrative Reason for consult: Pancytopenia Narrative: Mir Adrian is a 75 year old male who has been in good health came into the ER with complain of persistent fever for last couple of weeks duration. Patient was followed up by the primary care physician in the CT scan of the abdomen and pelvis was ordered. He has some night sweats and lost couple of lb of weight. Denies any rash in diarrhea. In fact he was dealing with constipation with chest resolved yesterday. He denies any sore throat. Labs ordered by the primary care physician on August 22 showed pancytopenia. Labs in the hospital showed WBC of 0.5 with hemoglobin of 8.8 [place]CV [place] 86.6 [place] [address]. There was some immature granulocyte about 2%. CT scan from September 01 showed splenomegaly with spleen size of 17.5 cm a along with enlarged prostate. There was no pathologically enlarged lymph nodes. Review of Systems - Review of Systems All systems reviewed & are unremarkable except as noted in HPI and bel - Neurologic Denies headache(s), Denies focal weakness, Denies numbness, Denies sensory deficit, Denies weakness PMFSH Family History: Family History (Last Updated 09/02/20 @ 01:25 by Ricarda Cross RN) Father Diabetes mellitus - Social History Social History: Social History Gender Identity: Gender identity (if verbalized by the patient): Male Alcohol Use: Alcohol intake: current Drinks per week: 5 Substance Use: Substance use: never Substance use type: does not use Others: Spiritual care concerns: No Smoking Status: Smoking status: Former smoker Approximate Smoking End Date: 13 years ago Meds Home Medications Medication Instructions Recorded Confirmed Type atorvastatin 10 mg PO DAILY 08/21/20 09/02/20 History eszopiclone 3 mg PO HS 09/02/20 09/02/20 History Allergies Allergy/AdvReac Type Severity Reaction Status Date / Time No Known Allergies Allergy Unknown Verified 09/02/20 01:19 Results - Labs CBC & Chem 7: 09/04/20 07:53 09/04/20 07:53 Labs: Short CBC 09/04/20 Range/Units 07:53 WBC 0.6 L* (4.5-10.0) K/mm3 Hgb 8.9 L (14.0-18.0) g/dL Hct 26.1 L (42.0-52.0) % Plt Count 23 L* (150-375) k/mm3 BMP 09/04/20 09/04/20 07:53 07:53 Sodium 125 L Potassium 3.4 Chloride 93 L Carbon Dioxide 24 BUN 15 Creatinine 0.80 0.80 Glucose 104 Calcium 8.2 L Liver Function 09/04/20 Range/Units 07:53 Total Bilirubin 2.2 H (0.2-1.3) mg/dL AST 98 H (17-59) U/L ALT 70 H (4-50) U/L Alkaline Phosphatase 111 (38-126) U/L Albumin 3.2 L (3.5-5.1) g/dL Assessment and Plan - Additional Plan Pancytopenia. Patient is a pleasant 75-year-old male who has been dealing with persistent fever for last couple of weeks duration. He has no other symptoms other than occasional night sweats. He lost couple of on a weight. Labs noted that showed WBC of 0.6 with hemoglobin [place] 8[place]9 [place] [address] with normal MCV and elevated immature granulocyte. CT scan showed spleen size of 17 cm without any pathologically enlarged lymph node. These findings are worrisome for primary bone marrow disorder like myelodysplastic syndrome or even acute leukemia. I will order bone marrow aspiration and biopsy along with cytogenetics. Patient was provided with my office information for follow-up. Fever of unknown origin. Patient is on prophylactic antibiotics. Neupogen can be added after the bone marrow biopsy. Exam - Vital Signs Vital Signs - 24 hr 09/03/20 14:00 09/03/20 20:00 09/03/20 20:20 Temperature 36.4 C L 39.1 C H Pulse Rate 105 H 109 H 109 H Respiratory Rate 20 16 16 Blood Pressure 127/63 128/62 Pulse Oximetry 99 95 95 09/03/20 20:27
[2020-09-04 12:56] LABS: INR 1.1; Prothrombin Time 14.5 Seconds (11.1-14.7)
[2020-09-04 12:57] LABS: Partial Thromboplastin Time 40.5 SECONDS (22.3-36.8)
[2020-09-04 13:01] LABS: Sodium Urine Random 48 meq/L
[2020-09-04] MEDS: ONDANSETRON INJ 4 MG/2 ML VIAL IV PUSH (14:16)
--- NOTE | 2020-09-04 18:17 | PHAR ---
PT'S HOME MED LUNESTA (ESZOPICLONE) 3 MG TABS VERIFIED BY PHARMACY
[2020-09-04 20:37] LABS: Vancomycin Trough 10.1 ug/mL (10.0-20.0)
[2020-09-04] MEDS: IBUPROFEN 600 MG TABLET PO (22:23)
[2020-09-05] VITALS (13 sets, daily range): BP systolic 96–141; BP diastolic 53–67; PULSE 84–107; RESP 16–25; TEMP 36.6–38.9; O2SAT 93–100
[2020-09-05 05:45] LABS: Alanine Aminotransferase 83 U/L (4-50); Alkaline Phosphatase 134 U/L (38-126); Anion Gap 8 mmol/L (8-16); Aspartate Amino Transferase 131 U/L (17-59); Bilirubin Direct 0.5 mg/dL (0-0.3); Bilirubin,Total 2.8 mg/dL (0.2-1.3); Blood Urea Nitrogen 17 mg/dL (9-20); Calcium 8.1 mg/dL (8.4-10.2); Carbon Dioxide 25 mmol/L (22-30); Chloride 89 mmol/L (98-107); Estimated CRCL calculation 86 ml/min; Estimated Glomerular Filt Rate > 60; Glucose 100 mg/dL (65-110); Magnesium 1.8 mg/dL (1.6-2.3); Potassium 3.6 mmol/L (3.4-5.0); Sodium 122 mmol/L (137-145)
[2020-09-05 05:55] LABS: Hematocrit 24.9 % (42.0-52.0); Hemoglobin 8.8 g/dL (14.0-18.0); Immature Platelet Fraction Pct 23.9 % (0.9-11.2); Lymphocytes Absolute Auto 0.63 K/mm3 (0.9-3.2); Mean Corpuscular HGB Conc 35.3 g/dl (32-36); Mean Corpuscular Hemoglobin 28.9 pg (26-34); Mean Corpuscular Volume 81.9 fl (80-100); Monocytes Percent Auto 4.4 % (2.6-8.5); Neutrophils Absolute Auto 0.2 K/mm3 (1.3-6.7); Neutrophils Percent Auto 25.6 % (45.5-73.1); Red Blood Count 3.04 M/mm3 (4.6-6.20); Red Cell Distribution Width 15.3 % (11.5-14.5)
[2020-09-05 06:57] LABS: Platelet Count Result 14 k/mm3 (150-375)
[2020-09-05 07:00] LABS: White Blood Count 0.9 K/mm3 (4.5-10.0)
[2020-09-05 07:01] LABS: Anisocytosis 1+ (NORMAL); Burr Cells 1+ (NORMAL); Platelet Estimate Decreased (Adequate)
--- NOTE | 2020-09-05 12:22 | PC.NURSE ---
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 Original Note: To [employer] per , IV ZELALEM, RAC.
--- NOTE | 2020-09-05 12:26 | PM.IMPN ---
Progress Note: A&P Assessment and Plan (1) Pancytopenia with fever: Code(s): D61.818 - Other pancytopenia; R50.81 - Fever presenting with conditions classified elsewhere Status: Acute Assessment and Plan: Patient continues to have pancytopenia with worsening platelet count in a very low white blood cell count - concerning for AML and other diseases such as MDS. Peripheral smear has been ordered. Will need bone marrow biopsy - Dr. Uribe consulted - platelet count [id number] without any evidence of bleeding on exam. If he starts to bleed or drops below 15,000, may consider platelet transfusion - CT C/A/P shows splenomegaly. No s/sx of acute blood loss. Iron panel consistent with XIN. -Cultures and various labs are pending. patient has been negative for HIV, hepatitis, CMV, COVID-19. B12 normal - he was vaccinated in April 2020 - continue antibiotic coverage with cefepime and vancomycin, Infectious Disease has been consulted -Other ddx less likely: drug induced cytopenia, toxin exposure etc. 09/05/20 12:26 09/05 Patient with pancytopenia and fever today his platelets have dropped to 14 compared to 117 upon arrival, patient does not have any complaints of nor there is any bruising patient is clinically stable, communicated with hematology and will give 2 units of platelets and monitor, scheduled for bone Woods biopsy later today, there is slight improvement in white count to 0.9 compared to yesterday 0.6, patient continue to have fever, his blood culture no growth so far, patient being treated with Cefepime and vancomycin patient is seen by ID and work up is in progress. will continue to monitor patient will be seen by hematology and further recommendation to follow. (2) Fever of unknown origin: Code(s): R50.9 - Fever, unspecified Status: Acute Assessment and Plan: Stated 7 days prior to admission -Many lab studies pending -No signs of infection on CT of c/a/p, UA, blood cultures -echo showing:Cannot rule out aortic valve vegetation visualized. Measured 0.8cmx0.7cmbechodense structure unable to be further characterized, however, vegetation a consideration possibly associated with noncoronary cusp. -consider WHITNEY (3) Neutropenia: Code(s): D70.9 - Neutropenia, unspecified Status: Acute Assessment and Plan: As above. continue to monitor (4) Hyponatremia: Code(s): E87.1 - Hypo-osmolality and hyponatremia Status: Acute Assessment and Plan: Serum sodium is 125 today (worsening) -will order urine sodium. Pt not on any diuretics -He appears euvolemic at this current time -Continue to monitor. He is asymptomatic. -LR stopped 09/03/20 (5) Constipation: Code(s): K59.00 - Constipation, unspecified Status: Acute Assessment and Plan: Resolved Subjective Date/time seen: 09/05/20 12:26 09/05 Patient with pancytopenia and fever today his platelets have dropped to 14 compared to 117 upon arrival, patient does not have any complaints of nor there is any bruising patient is clinically stable, communicated with hematology and will give 2 units of platelets and monitor, scheduled for bone Woods biopsy later today, there is slight improvement in white count to 0.9 compared to yesterday 0.6, patient continue to have fever, his blood culture no growth so far, patient being treated with Cefepime and vancomycin patient is seen by ID and work up is in progress. will continue to monitor patient will be seen by hematology and further recommendation to follow. Review of Systems Review of Systems: All systems reviewed & are unremarkable except as noted in HPI and below Exam Narrative: Exam Narrative: Patient is comfortable, NAD HEENT: eyes are clear and none icteric LUNGS:CTA HEART: RR S1S2 ABD: BS+, Soft and nontender Lower extremities: no edema SKIN: nonjaundiced, no rash or brusing Neuro: grossly intact. Objective Data
--- NOTE | 2020-09-05 12:39 | WPDMODSED ---
Moderate Sedation Note-Pt Data Patient Data Allergies Allergy/AdvReac Type Severity Reaction Status Date / Time No Known Allergies Allergy Unknown Verified 09/02/20 01:19 Home Medications Medication Instructions Recorded Confirmed Type atorvastatin 10 mg PO DAILY 08/21/20 09/02/20 History eszopiclone 3 mg PO HS 09/02/20 09/02/20 History Current Medications: Active Medications Acetaminophen (Acetaminophen 325 Mg Tablet) 650 mg PO Q6H PRN PRN Reason: Mild Pain (1-3) or Fever Last Admin: 09/04/20 14:13 Dose: 650 mg Documented by: Cefepime HCl (Maxipime 2 Gm/D5w 50 Ml) 2 gm in 50 mls @ 100 mls/hr IVPB Q8H TANNER Last Infusion: 09/05/20 08:50 Dose: Infused Documented by: Vancomycin HCl (Vancomycin 1,500 Mg/D5w 500 Ml) 1,500 mg in 500 mls @ 333.333 mls/hr IVPB Q12H TANNER Last Admin: 09/05/20 10:04 Dose: 250 mls/hr Documented by: Ibuprofen (Ibuprofen 600 Mg Tablet) 600 mg PO Q6H PRN PRN Reason: alternate with tyelnol 4 fever Last Admin: 09/04/20 22:23 Dose: 600 mg Documented by: Neomycin/Polymyxin/Bacitracin (Neomycin/Polymyxin/Bacitracin Ointment 15 Gm Tube) 1 applic TOPICAL PRN PRN PRN Reason: with dressing changes Ondansetron HCl (Ondansetron Inj 4 Mg/2 Ml Vial) 4 mg IV PUSH Q4H PRN PRN Reason: Nausea Last Admin: 09/04/20 14:16 Dose: 4 mg Documented by: Polyethylene Glycol (Polyethylene Glycol 3350 17 Gm Powd.Pack) 17 gm PO QAM TANNER Last Admin: 09/05/20 08:24 Dose: Not Given Documented by: Sedation/Anesthesia: No previous sedation/anesthesia problems (including family history). [facility] Family History Family History Father Diabetes mellitus Social History Social History Smoking status: Former smoker Alcohol intake: current Drinks per week: 5 Substance use: never Substance use type: does not use Gender identity (if verbalized by the patient): Male Spiritual care concerns: No Mod Sed Physical Exam Physical Exam Pre Procedural Exam: Normal: Appearance, Eyes, Ears, Nose, Heart Rate, Heart Rhythm, Extremities and Skin Hours since solid foods: 12 Hours since liquid intake: 12 Mallampati Classification: class II Internal Medicine - PN: Obj Da Vital Signs Vital Signs: Vital Signs - 24 hr 09/04/20 14:00 09/04/20 14:13 09/04/20 15:10 Temperature 103 F H 103 F H 99.3 F Pulse Rate 103 H Respiratory Rate 18 Blood Pressure 115/68 Pulse Oximetry 100 09/04/20 15:46 09/04/20 21:48 09/04/20 22:23 Temperature 99.3 F 100.5 F H 100.5 F H Pulse Rate 103 H Respiratory Rate 16 Blood Pressure 90/56 L Pulse Oximetry 100 09/05/20 00:52 09/05/20 06:00 Temperature 99.6 F 99.8 F H Pulse Rate 84 Respiratory Rate 16 Blood Pressure 96/53 L Pulse Oximetry 93 Intake/Output Intake/Output: Intake & Output 09/02/20 09/03/20 09/04/20 09/05/20 23:59 23:59 23:59 23:59 Intake Total 4390 2450 2850 300 Output Total 1125 1300 850 400 Balance 3265 1150 1999 Meds/Results Medications: Active Medications Generic Name Dose Route Start Last Admin Trade Name Freq PRN Reason Stop Dose Admin Acetaminophen 650 mg 09/03/20 08:08 09/04/20 14:13 Acetaminophen 325 Mg Tablet PO 650 mg Q6H PRN Administration Mild Pain (1-3) or Fever Cefepime HCl 2 gm in 50 mls @ 100 mls/hr 09/02/20 08:00 09/05/20 08:50 Maxipime 2 Gm/D5w 50 Ml IVPB Infused Q8H TANNER Infusion Vancomycin HCl 1,500 mg in 500 mls @ 333.333 mls/hr 09/04/20 22:00 09/05/20 10:04 Vancomycin 1,500 Mg/D5w 500 Ml IVPB 250 mls/hr Q12H TANNER Administration Ibuprofen 600 mg 09/04/20 16:07 09/04/20 22:23 Ibuprofen 600 Mg Tablet PO 600 mg Q6H PRN Administration alternate with tyelnol 4 fever Neomycin/Polymyxin/Bacitracin 1 applic 09/04/20 12:47 Neomycin/Polymyxin/Bacitracin Ointment 15 Gm Tube TOPICAL PRN PRN with dressing changes O
--- NOTE | 2020-09-05 13:34 | PC.NURSE ---
Returned from Shipping/Receiving Manager. Report received from nurse, Dry pressure dressing present to posterior lower back, pt is to lay flat until 1400 then may be elevated 30 degrees bedrest until 1600
--- NOTE | 2020-09-05 15:08 | WPDINFPN2 ---
Progress Note: A&P Additional Plan 1. fever of unknown origin going on for 2 weeks associated with pancytopenia and splenomegaly. Highly concerning for bone marrow disorder/malignancy. workup for infectious etiologies in process. Blood cultures are so far negative. cefepime and vancomycin Day 3. Will continue. 2. pancytopenia. Patient has neutropenia and WBC is more of lymphocytic and monocytic predominance. Concerning for bone marrow malignancy. Hematology-Oncology has evaluated patient. Bone marrow biopsy today. 3. Transaminitis. With mildly elevated AST and ALT less than 100. Will request hepatitis profile. Subjective Date/time seen: 09/05/20 15:08 Exam Const: Other: patient is sleepy post bone marrow biopsy. Received sedation HENMT: Head: normal to inspection Eyes: General: appearance normal, both eyes and all related structures Neck: Neck: normal visual inspection Resp: Effort & Inspection: normal respiratory effort Cardio: Heart sounds: S1 normal heart sound present and S2 normal heart sound present GI: Inspection: normal to inspection Auscultation: normal bowel sounds Skin: General skin exam: normal color Neuro: Other: patient is sedated post bone marrow biopsy. Sleepy but arousable. Moves all extremities Objective Data Vital Signs Vital Signs: Vital Signs - 24 hr 09/04/20 15:10 09/04/20 15:46 09/04/20 21:48 Temperature 37.4 C 37.4 C 38.1 C H Pulse Rate 103 H Respiratory Rate 16 Blood Pressure 90/56 L Pulse Oximetry 100 09/04/20 22:23 09/05/20 00:52 09/05/20 06:00 Temperature 38.1 C H 37.6 C 37.7 C H Pulse Rate 84 Respiratory Rate 16 Blood Pressure 96/53 L Pulse Oximetry 93 09/05/20 13:04 09/05/20 13:30 Temperature 36.8 C Pulse Rate 89 Respiratory Rate 25 H 16 Blood Pressure 115/65 114/64 Pulse Oximetry 100 98 Intake/Output Intake/Output: Intake & Output 09/02/20 09/03/20 09/04/20 09/05/20 23:59 23:59 23:59 23:59 Intake Total 4390 2450 2850 800 Output Total 1125 1300 850 400 Balance 3265 1150 2000 400 Meds/Results Medications: Active Medications Generic Name Dose Route Start Last Admin Trade Name Freq PRN Reason Stop Dose Admin Acetaminophen 650 mg 09/03/20 08:08 09/04/20 14:13 Acetaminophen 325 Mg Tablet PO 650 mg Q6H PRN Administration Mild Pain (1-3) or Fever Cefepime HCl 2 gm in 50 mls @ 100 mls/hr 09/02/20 08:00 09/05/20 08:50 Maxipime 2 Gm/D5w 50 Ml IVPB Infused Q8H TANNER Infusion Vancomycin HCl 1,500 mg in 500 mls @ 333.333 mls/hr 09/04/20 22:00 09/05/20 13:42 Vancomycin 1,500 Mg/D5w 500 Ml IVPB Infused Q12H TANNER Infusion Ibuprofen 600 mg 09/04/20 16:07 09/04/20 22:23 Ibuprofen 600 Mg Tablet PO 600 mg Q6H PRN Administration alternate with tyelnol 4 fever Neomycin/Polymyxin/Bacitracin 1 applic 09/04/20 12:47 Neomycin/Polymyxin/Bacitracin Ointment 15 Gm Tube TOPICAL PRN PRN with dressing changes Ondansetron HCl 4 mg 09/01/20 23:39 09/04/20 14:16 Ondansetron Inj 4 Mg/2 Ml Vial IV PUSH 4 mg Q4H PRN Administration Nausea Polyethylene Glycol 17 gm 09/03/20 09:00 09/05/20 08:24 Polyethylene Glycol 3350 17 Gm Powd.Pack PO Not Given [facility] Radiology Results: ITS Impressions Chest X-Ray 09/01/20 22:54 IMPRESSION: 1. No acute cardiopulmonary disease. Chest/Abdomen/Pelvis CT 09/01/20 23:47 IMPRESSION: 1. Splenomegaly. No other acute intrathoracic, abdominal or pelvic process. 2. 1 mm nonobstructing left renal stone. 3. Small fat-containing left inguinal hernia. 4. Mild emphysema. Biopsy,Fluoroscopy Guided 09/05/20 14:32 IMPRESSION: 1. Successful fluoro-guided bone marrow aspiration. 2. Successful fluoro-guided bone marrow core biopsy. Labs Labs: Laboratory Results - last 24 hr 09/04/20 09/05/20 09/05/20 19:04 04:54 04:54 WBC 0.9 L* RBC 3.04 L Hgb 8.8 L Hct 24.9 L MCV 81.
[2020-09-05] MEDS: SODIUM CHLORIDE 0.9% IV 250 ML 30 ML (16:09)
[2020-09-05] MEDS: ACETAMINOPHEN 325 MG TABLET 650 MG PO (17:14)
[2020-09-06] VITALS (11 sets, daily range): BP systolic 110–143; BP diastolic 63–73; PULSE 89–115; RESP 18–21; TEMP 36.4–40.3; O2SAT 97–100
[2020-09-06 05:51] LABS: Basophils Percent Auto 0.8 % (0.2-1.2); Hematocrit 24.1 % (42.0-52.0); Hemoglobin 8.5 g/dL (14.0-18.0); Immature Granulocyte Absolute 0.01 K/mm3 (0.00-0.031); Immature Granulocyte Percent A 0.8 % (0-0.5); Lymphocytes Absolute Auto 0.82 K/mm3 (0.9-3.2); Lymphocytes Percent Auto 63.1 % (18.3-44.2); Mean Corpuscular HGB Conc 35.3 g/dl (32-36); Mean Corpuscular Hemoglobin 28.6 pg (26-34); Mean Corpuscular Volume 81.1 fl (80-100); Mean Platelet Volume 12.2 fl (7.4-10.4); Monocytes Absolute Auto 0.2 K/mm3 (0.1-0.6); Monocytes Percent Auto 18.5 % (2.6-8.5); Neutrophils Absolute Auto 0.2 K/mm3 (1.3-6.7); Neutrophils Percent Auto 16.8 % (45.5-73.1); Nucleated Red Blood Cells Perc 1.5 % (0.0-0.2); Red Blood Count 2.97 M/mm3 (4.6-6.20)
[2020-09-06 06:00] LABS: Alanine Aminotransferase 161 U/L (4-50); Albumin Level 2.9 g/dL (3.5-5.1); Alkaline Phosphatase 205 U/L (38-126); Anion Gap 8 mmol/L (8-16); Aspartate Amino Transferase 332 U/L (17-59); Bilirubin,Total 4.3 mg/dL (0.2-1.3); Blood Urea Nitrogen 18 mg/dL (9-20); Calcium 8.1 mg/dL (8.4-10.2); Carbon Dioxide 24 mmol/L (22-30); Chloride 89 mmol/L (98-107); Estimated CRCL calculation 86 ml/min; Estimated Glomerular Filt Rate > 60; Glucose 109 mg/dL (65-110); Potassium 3.4 mmol/L (3.4-5.0); Sodium 121 mmol/L (137-145); White Blood Count 1.3 K/mm3 (4.5-10.0)
[2020-09-06 06:01] LABS: Platelet Count Result 16 k/mm3 (150-375)
[2020-09-06] MEDS: ACETAMINOPHEN 325 MG TABLET 650 MG PO ×2 (06:10→18:38)
[2020-09-06 06:43] LABS: Ovalocytes 1+ (NORMAL); Platelet Estimate Decreased (Adequate)
[2020-09-06 06:44] LABS: Burr Cells 1+ (NORMAL)
[2020-09-06] MEDS: polyethylene glycoL 3350 17 GM POWD.PACK PO (08:47)
[2020-09-06] MEDS: IBUPROFEN 600 MG TABLET PO (08:48)
--- NOTE | 2020-09-06 13:49 | PM.IMPN ---
Progress Note: A&P Assessment and Plan (1) Pancytopenia with fever: Code(s): D61.818 - Other pancytopenia; R50.81 - Fever presenting with conditions classified elsewhere Status: Acute Assessment and Plan: Patient continues to have pancytopenia with worsening platelet count in a very low white blood cell count - concerning for AML and other diseases such as MDS. Peripheral smear has been ordered. Will need bone marrow biopsy - Dr. Uribe consulted - platelet count 98448 without any evidence of bleeding on exam. If he starts to bleed or drops below 15,000, may consider platelet transfusion - CT C/A/P shows splenomegaly. No s/sx of acute blood loss. Iron panel consistent with XIN. -Cultures and various labs are pending. patient has been negative for HIV, hepatitis, CMV, COVID-19. B12 normal - he was vaccinated in April 2020 - continue antibiotic coverage with cefepime and vancomycin, Infectious Disease has been consulted -Other ddx less likely: drug induced cytopenia, toxin exposure etc. 09/05/20 12:26 09/05 Patient with pancytopenia and fever today his platelets have dropped to 14 compared to 117 upon arrival, patient does not have any complaints of nor there is any bruising patient is clinically stable, communicated with hematology and will give 2 units of platelets and monitor, scheduled for bone Woods biopsy later today, there is slight improvement in white count to 0.9 compared to yesterday 0.6, patient continue to have fever, his blood culture no growth so far, patient being treated with Cefepime and vancomycin patient is seen by ID and work up is in progress. will continue to monitor patient will be seen by hematology and further recommendation to follow. 09/06 yesterday patient received 2 units of platelets and today his platelets are 16 compared 14 yesterday, patient is clinically stable denies any complaint bleeding, bruising, abdominal pain nausea or vomit, patient continue to have fever, patient be seen by hematology and further recommendation to follow, patient is seen by ID suspect patient has patient has fever of unknown origin, a blood cultures so far are negative, Cefepime and vancomycin. patient had a bone marrow biopsy on 09/05 pathology is pending, today patient states his sister had a similar presentation and see seen by same Hematology I have communicated this to the Hematology and further recommendation to follow. (2) Fever of unknown origin: Code(s): R50.9 - Fever, unspecified Status: Acute Assessment and Plan: Stated 7 days prior to admission -Many lab studies pending -No signs of infection on CT of c/a/p, UA, blood cultures -echo showing:Cannot rule out aortic valve vegetation visualized. Measured 0.8cmx0.7cmbechodense structure unable to be further characterized, however, vegetation a consideration possibly associated with noncoronary cusp. -consider WHITNEY (3) Neutropenia: Code(s): D70.9 - Neutropenia, unspecified Status: Acute Assessment and Plan: As above. continue to monitor (4) Hyponatremia: Code(s): E87.1 - Hypo-osmolality and hyponatremia Status: Acute Assessment and Plan: Serum sodium is 125 today (worsening) -will order urine sodium. Pt not on any diuretics -He appears euvolemic at this current time -Continue to monitor. He is asymptomatic. -LR stopped 09/03/20 (5) Constipation: Code(s): K59.00 - Constipation, unspecified Status: Acute Assessment and Plan: Resolved Subjective Date/time seen: 09/06/20 13:49 Interval history: Patient is a 75-year-old male here for fevers and pancytopenia. Patient was seen today and case reviewed with him. No new findings on exam or history. he confirms that he had these fevers for about a week before coming into the hospital. Prior to that, he was working out 3 days a week, playing golf, and had absolutely no issues. He said his left fe
[2020-09-07] VITALS (14 sets, daily range): BP systolic 98–117; BP diastolic 54–80; PULSE 93–114; RESP 16–20; TEMP 36.7–39.1; O2SAT 93–98
[2020-09-07 05:40] LABS: Hematocrit 24.5 % (42.0-52.0); Hemoglobin 8.6 g/dL (14.0-18.0); Immature Granulocyte Absolute 0.01 K/mm3 (0.00-0.031); Immature Granulocyte Percent A 0.6 % (0-0.5); Immature Platelet Fraction Pct 22.6 % (0.9-11.2); Lymphocytes Absolute Auto 1.19 K/mm3 (0.9-3.2); Lymphocytes Percent Auto 75.8 % (18.3-44.2); Mean Corpuscular HGB Conc 35.1 g/dl (32-36); Mean Corpuscular Volume 82.5 fl (80-100); Monocytes Absolute Auto 0.1 K/mm3 (0.1-0.6); Monocytes Percent Auto 8.3 % (2.6-8.5); Neutrophils Absolute Auto 0.2 K/mm3 (1.3-6.7); Neutrophils Percent Auto 15.3 % (45.5-73.1); Red Blood Count 2.97 M/mm3 (4.6-6.20); Red Cell Distribution Width 15.5 % (11.5-14.5)
[2020-09-07 05:48] LABS: Platelet Count Result 9 k/mm3 (150-375); White Blood Count 1.6 K/mm3 (4.5-10.0)
[2020-09-07 06:10] LABS: Ovalocytes 1+ (NORMAL); Platelet Estimate Decreased (Adequate)
[2020-09-07 06:41] LABS: Alanine Aminotransferase 195 U/L (4-50); Albumin Level 2.7 g/dL (3.5-5.1); Alkaline Phosphatase 210 U/L (38-126); Anion Gap 8 mmol/L (8-16); Aspartate Amino Transferase 383 U/L (17-59); Bilirubin,Total 5.1 mg/dL (0.2-1.3); Blood Urea Nitrogen 25 mg/dL (9-20); Calcium 8.3 mg/dL (8.4-10.2); Carbon Dioxide 24 mmol/L (22-30); Chloride 89 mmol/L (98-107); Estimated CRCL calculation 63 ml/min; Estimated Glomerular Filt Rate > 60; Glucose 105 mg/dL (65-110); Potassium 3.3 mmol/L (3.4-5.0); Sodium 121 mmol/L (137-145)
[2020-09-07] MEDS: polyethylene glycoL 3350 17 GM POWD.PACK PO (08:38)
[2020-09-07] MEDS: SODIUM CHLORIDE 0.9% IV 250 ML 30 ML IV CONT (08:38)
[2020-09-07 11:26] LABS: Methylmalonic Acid 265 nmol/L (87-318)
[2020-09-07] MEDS: FERROUS SULFATE 324 MG TABLET PO ×2 (11:26→17:12)
[2020-09-07] MEDS: FILGRASTIM-SNDZ 480 MCG/0.8 ML SYRINGE SUB-Q (11:26)
[2020-09-07] MEDS: ACETAMINOPHEN 325 MG TABLET 650 MG PO (11:28)
--- NOTE | 2020-09-07 12:37 | PM.IMPN ---
Progress Note: A&P Assessment and Plan (1) Pancytopenia with fever: Code(s): D61.818 - Other pancytopenia; R50.81 - Fever presenting with conditions classified elsewhere Status: Acute Assessment and Plan: Patient continues to have pancytopenia with worsening platelet count in a very low white blood cell count - concerning for AML and other diseases such as MDS. Peripheral smear has been ordered. Will need bone marrow biopsy - Dr. Uribe consulted - platelet count 10425 without any evidence of bleeding on exam. If he starts to bleed or drops below 15,000, may consider platelet transfusion - CT C/A/P shows splenomegaly. No s/sx of acute blood loss. Iron panel consistent with XIN. -Cultures and various labs are pending. patient has been negative for HIV, hepatitis, CMV, COVID-19. B12 normal - he was vaccinated in April 2020 - continue antibiotic coverage with cefepime and vancomycin, Infectious Disease has been consulted -Other ddx less likely: drug induced cytopenia, toxin exposure etc. 09/05/20 12:26 09/05 Patient with pancytopenia and fever today his platelets have dropped to 14 compared to 117 upon arrival, patient does not have any complaints of nor there is any bruising patient is clinically stable, communicated with hematology and will give 2 units of platelets and monitor, scheduled for bone Woods biopsy later today, there is slight improvement in white count to 0.9 compared to yesterday 0.6, patient continue to have fever, his blood culture no growth so far, patient being treated with Cefepime and vancomycin patient is seen by ID and work up is in progress. will continue to monitor patient will be seen by hematology and further recommendation to follow. 09/06 yesterday patient received 2 units of platelets and today his platelets are 16 compared 14 yesterday, patient is clinically stable denies any complaint bleeding, bruising, abdominal pain nausea or vomit, patient continue to have fever, patient be seen by hematology and further recommendation to follow, patient is seen by ID suspect patient has patient has fever of unknown origin, a blood cultures so far are negative, Cefepime and vancomycin. patient had a bone marrow biopsy on 09/05 pathology is pending, today patient states his sister had a similar presentation and see seen by same Hematology I have communicated this to the Hematology and further recommendation to follow. 09/07/2009/07 today again patient platelets trended down to 9 will give 2 units, patient does not have any c/o bleeding or bruising, patient continue to have high fever and feels malaise, blood cultures still no growth, will continue Cefepime and Vancomycin, patient will b be seen by ID, bone marrow biopsy pathaology is pending and will be seen by fruit grading supervisor and further recommendation to follow. (2) Fever of unknown origin: Code(s): R50.9 - Fever, unspecified Status: Acute Assessment and Plan: Stated 7 days prior to admission -Many lab studies pending -No signs of infection on CT of c/a/p, UA, blood cultures -echo showing:Cannot rule out aortic valve vegetation visualized. Measured 0.8cmx0.7cmbechodense structure unable to be further characterized, however, vegetation a consideration possibly associated with noncoronary cusp. -consider WHITNEY (3) Neutropenia: Code(s): D70.9 - Neutropenia, unspecified Status: Acute Assessment and Plan: As above. continue to monitor (4) Hyponatremia: Code(s): E87.1 - Hypo-osmolality and hyponatremia Status: Acute Assessment and Plan: Serum sodium is 125 today (worsening) -will order urine sodium. Pt not on any diuretics -He appears euvolemic at this current time -Continue to monitor. He is asymptomatic. -LR stopped 09/03/20 (5) Constipation: Code(s): K59.00 - Constipation, unspecified Status: Acute Assessment and Plan: Resolved Subjective
--- NOTE | 2020-09-07 13:32 | WPDINFPN2 ---
Progress Note: A&P Assessment and Plan (1) Pancytopenia with fever: Code(s): D61.818 - Other pancytopenia; R50.81 - Fever presenting with conditions classified elsewhere Status: Acute Assessment and Plan: 1. febrile neutropenia, no + micro 2. Pancytopenia with lymphocyte predominance, primary hematologic illness is highly suspect REC Cefepime #6. Await BM results. Subjective Date/time seen: 09/07/20 13:32 Interval history: fatigue with the fever, no new complaints Exam Narrative: Exam Narrative: t max 40.1 Const: General: no acute distress Eyes: General: appearance normal, both eyes and all related structures Resp: Effort & Inspection: normal respiratory effort Auscultation: clear to auscultation bilaterally Cardio: Rate: tachycardic Rhythm: regular rhythm Heart sounds: no gallops and no murmurs GI: Inspection: non-distended GI Palp: Yes Soft to palpation and No Tenderness to palpation present (GI) Percussion: Yes normal to percussion Objective Data Vital Signs Vital Signs: Vital Signs - 24 hr 09/06/20 14:00 09/06/20 18:38 09/06/20 20:00 Temperature 40.1 C H 40.1 C H 36.4 C Pulse Rate 110 H Respiratory Rate 20 Blood Pressure 122/69 Pulse Oximetry 100 09/06/20 22:00 09/07/20 06:00 09/07/20 10:00 Temperature 36.4 C 36.7 C 37.2 C Pulse Rate 89 99 93 Respiratory Rate 20 20 Blood Pressure 110/68 112/66 Pulse Oximetry 99 98 09/07/20 11:28 09/07/20 12:15 09/07/20 13:01 Temperature 38.3 C H 37.2 C 39.1 C H Pulse Rate 110 H Respiratory Rate 18 Blood Pressure 105/62 Pulse Oximetry 94 09/07/20 13:15 Temperature 38.6 C H Pulse Rate 111 H Respiratory Rate 18 Blood Pressure 117/80 Pulse Oximetry 95 Intake/Output Intake/Output: Intake & Output 09/04/20 09/05/20 09/06/20 09/07/20 23:59 23:59 23:59 23:59 Intake Total 2850 1336 2210 1600 Output Total 850 900 300 Balance 1999 436 1910 1600 Meds/Results Medications: Active Medications Generic Name Dose Route Start Last Admin Trade Name Freq PRN Reason Stop Dose Admin Acetaminophen 650 mg 09/03/20 08:08 09/07/20 11:28 Acetaminophen 325 Mg Tablet PO 650 mg Q6H PRN Administration Mild Pain (1-3) or Fever Ferrous Sulfate 324 mg 09/07/20 12:00 09/07/20 11:26 Ferrous Sulfate 324 Mg Tablet PO 324 mg TIDWM TANNER Administration Filgrastim-Sndz 480 mcg 09/07/20 09:00 09/07/20 11:26 Filgrastim-Sndz 480 Mcg/0.8 Ml Syringe SUB-Q 09/11/20 09:01 480 mcg DAILY TANNER Administration Cefepime HCl 2 gm in 50 mls @ 100 mls/hr 09/02/20 08:00 09/07/20 09:08 Maxipime 2 Gm/D5w 50 Ml IVPB Infused Q8H TANNER Infusion Sodium Chloride 250 mls @ 30 mls/hr 09/07/20 07:28 09/07/20 08:38 Normal Saline Iv IV CONT 09/07/20 15:47 30 mls/hr .Q8H20M STA Administration Ibuprofen 600 mg 09/04/20 16:07 09/06/20 08:48 Ibuprofen 600 Mg Tablet PO 600 mg Q6H PRN Administration alternate with tyelnol 4 fever Neomycin/Polymyxin/Bacitracin 1 applic 09/04/20 12:47 Neomycin/Polymyxin/Bacitracin Ointment 15 Gm Tube TOPICAL PRN PRN with dressing changes Ondansetron HCl 4 mg 09/01/20 23:39 09/04/20 14:16 Ondansetron Inj 4 Mg/2 Ml Vial IV PUSH 4 mg Q4H PRN Administration Nausea Polyethylene Glycol 17 gm 09/03/20 09:00 09/07/20 08:38 Polyethylene Glycol 3350 17 Gm Powd.Pack PO 17 gm QAM TANNER Administration Radiology Results: ITS Impressions Chest X-Ray 09/01/20 22:54 IMPRESSION: 1. No acute cardiopulmonary disease. Chest/Abdomen/Pelvis CT 09/01/20 23:47 IMPRESSION: 1. Splenomegaly. No other acute intrathoracic, abdominal or pelvic process. 2. 1 mm nonobstructing left renal stone. 3. Small fat-containing left inguinal hernia. 4. Mild emphysema. Biopsy,Fluoroscopy Guided 09/05/20 14:32 IMPRESSION: 1. Successful fluoro-guided bone marrow aspiration. 2. Successful fluoro-guided bone marrow core biopsy.
--- NOTE | 2020-09-07 17:02 | WPDONCPN ---
Progress Note: A/P - Additional Plan Pancytopenia. Likely secondary to bone marrow pathology or infection related along with secondary to splenomegaly. Bone marrow biopsy was performed and pathology is pending. Previously CT scan showed splenomegaly without any pathologically enlarged lymph node. I have discussed this case with patient primary care physician Dr. Dial yesterday. We will start Neupogen 480 mcg subcu daily until ANC is less than 1000. Infection Disease input noted. Patient is on vancomycin and cefepime. Blood cultures showed no growth. Agree with platelet transfusion to keep platelet count more than 20,000. Iron studies showed mild iron deficiency. Will start oral iron supplement. - Time Spent With Patient Total time spent is greater than 50% in coordination of care (as documented) at patient's floor/unit and/or counseling patient: 15 - 25 minutes Subjective Interval history: Pancytopenia Febrile neutropenia Review of Systems - Review of Systems Patient is complaining some tiredness and fatigue. Patient had some diarrheal stool yesterday. He has low-grade fever. No cough and sore throat. No other new complaints - Neurologic Denies headache(s), Denies focal weakness, Denies numbness, Denies sensory deficit, Denies weakness Exam Vital signs: Temp Pulse Resp BP Pulse Ox 39.0 C H 106 H 16 107/62 93 09/07/20 15:18 09/07/20 15:18 09/07/20 15:18 09/07/20 15:18 09/07/20 15:18 Narrative: Lungs are clear to auscultation bilaterally Cardiovascular regular rate rhythm no murmurs Abdomen soft nontender nondistended bowel sounds are positive Extremities no edema PN: Objective Data - Labs CBC & Chem 7: 09/07/20 05:04 09/07/20 05:04 Labs: Laboratory Results - last 24 hr 09/03/20 09/04/20 09/05/20 19:41 07:51 08:07 WBC RBC Hgb Hct MCV MCH MCHC RDW Plt Count MPV Immature Gran % (Auto) Neut % (Auto) Lymph % (Auto) Haakon % (Auto) Eos % (Auto) Baso % (Auto) Lymph # (Auto) Haakon # (Auto) Eos # (Auto) Baso # (Auto) Abs Immat Gran (auto) Absolute Neuts (auto) Absolute Nucleated RBC Nucleated RBC % Platelet Estimate % Immature Plt Fraction Ovalocytes Sodium Potassium Chloride Carbon Dioxide Anion Gap BUN Creatinine Estim Creat Clear Calc Estimated GFR Glucose Calcium Total Bilirubin AST ALT Alkaline Phosphatase Total Protein Albumin Methylmalonic Acid 265 E. chaffeensis IgG Ab <1:64 E. chaffeensis IgM Ab <1:20 E. chaffeensis Interp see below E. chaffeensis Comment see below Blood Type O Negative Antibody Screen Negative 09/07/20 09/07/20 05:04 05:04 WBC 1.6 L* RBC 2.97 L Hgb 8.6 L Hct 24.5 L MCV 82.5 MCH 29.0 MCHC 35.1 RDW 15.5 H Plt Count 9 L* MPV TNP Immature Gran % (Auto) 0.6 H Neut % (Auto) 15.3 L Lymph % (Auto) 75.8 H Haakon % (Auto) 8.3 Eos % (Auto) 0.0 Baso % (Auto) 0.0 L Lymph # (Auto) 1.19 Haakon # (Auto) 0.1 Eos # (Auto) 0.0 Baso # (Auto) 0.0 Abs Immat Gran (auto) 0.01 Absolute Neuts (auto) 0.2 L Absolute Nucleated RBC 0.0 Nucleated RBC % 0.0 Platelet Estimate Decreased % Immature Plt Fraction 22.6 H Ovalocytes 1+ Sodium 121 L Potassium 3.3 L Chloride 89 L Carbon Dioxide 24 Anion Gap 8 BUN 25 H Creatinine 1.10 Estim Creat Clear Calc 63 Estimated GFR > 60 Glucose 105 Calcium 8.3 L Total Bilirubin 5.1 H AST 383 H ALT 195 H Alkaline Phosphatase 210 H Total Protein 5.0 L Albumin 2.7 L Methylmalonic Acid E. chaffeensis IgG Ab E. chaffeensis IgM Ab E. chaffeensis Interp E. chaffeensis Comment Blood Type Antibody Screen
[2020-09-08] VITALS (12 sets, daily range): BP systolic 97–110; BP diastolic 52–74; PULSE 96–108; RESP 14–20; TEMP 36.4–37.7; O2SAT 93–98; BMI 25.2
[2020-09-08 05:58] LABS: Basophils Percent Auto 0.5 % (0.2-1.2); Hematocrit 22.8 % (42.0-52.0); Immature Granulocyte Absolute 0.01 K/mm3 (0.00-0.031); Immature Granulocyte Percent A 0.5 % (0-0.5); Immature Platelet Fraction Pct 15.7 % (0.9-11.2); Lymphocytes Absolute Auto 1.25 K/mm3 (0.9-3.2); Lymphocytes Percent Auto 60.7 % (18.3-44.2); Mean Corpuscular HGB Conc 35.1 g/dl (32-36); Mean Corpuscular Hemoglobin 28.9 pg (26-34); Mean Corpuscular Volume 82.3 fl (80-100); Monocytes Absolute Auto 0.1 K/mm3 (0.1-0.6); Monocytes Percent Auto 4.4 % (2.6-8.5); Neutrophils Absolute Auto 0.7 K/mm3 (1.3-6.7); Neutrophils Percent Auto 33.9 % (45.5-73.1); Red Blood Count 2.77 M/mm3 (4.6-6.20); Red Cell Distribution Width 15.7 % (11.5-14.5); White Blood Count 2.1 K/mm3 (4.5-10.0)
[2020-09-08 06:03] LABS: Alanine Aminotransferase 171 U/L (4-50); Albumin Level 2.8 g/dL (3.5-5.1); Alkaline Phosphatase 243 U/L (38-126); Anion Gap 6 mmol/L (8-16); Aspartate Amino Transferase 294 U/L (17-59); Bilirubin,Total 5.2 mg/dL (0.2-1.3); Blood Urea Nitrogen 27 mg/dL (9-20); Calcium 8.3 mg/dL (8.4-10.2); Carbon Dioxide 26 mmol/L (22-30); Chloride 91 mmol/L (98-107); Estimated CRCL calculation 63 ml/min; Estimated Glomerular Filt Rate > 60; Glucose 112 mg/dL (65-110); Potassium 3.7 mmol/L (3.4-5.0); Sodium 123 mmol/L (137-145)
[2020-09-08 07:07] LABS: Platelet Count Result 10 k/mm3 (150-375)
[2020-09-08 07:09] LABS: Burr Cells 1+ (NORMAL); Platelet Estimate Decreased (Adequate); Poikilocytosis 1+ (NORMAL)
[2020-09-08] MEDS: FERROUS SULFATE 324 MG TABLET PO ×3 (08:40→17:50)
[2020-09-08 09:44] LABS: NIL >8.00 IU/mL; Quantiferon TB Plus, 1T INDETERMINATE (NEGATIVE); TB1-NIL <0.00 IU/mL; TB2-NIL <0.00 IU/mL
--- NOTE | 2020-09-08 11:43 | PCNSR ---
On 09/08/20, the student, Digna Capone, provided care and [facility]. I have reviewed the student's documentation and agree with the findings.
[2020-09-08] MEDS: FILGRASTIM-SNDZ 480 MCG/0.8 ML SYRINGE SUB-Q (12:11)
[2020-09-08] MEDS: polyethylene glycoL 3350 17 GM POWD.PACK PO (12:11)
--- NOTE | 2020-09-08 12:24 | PM.IMPN ---
Progress Note: A&P Assessment and Plan (1) Pancytopenia with fever: Code(s): D61.818 - Other pancytopenia; R50.81 - Fever presenting with conditions classified elsewhere Status: Acute Assessment and Plan: Patient continues to have pancytopenia with worsening platelet count in a very low white blood cell count - concerning for AML and other diseases such as MDS. Peripheral smear has been ordered. Will need bone marrow biopsy - Dr. Uribe consulted - platelet count [id number] without any evidence of bleeding on exam. If he starts to bleed or drops below 15,000, may consider platelet transfusion - CT C/A/P shows splenomegaly. No s/sx of acute blood loss. Iron panel consistent with XIN. -Cultures and various labs are pending. patient has been negative for HIV, hepatitis, CMV, COVID-19. B12 normal - he was vaccinated in April 2020 - continue antibiotic coverage with cefepime and vancomycin, Infectious Disease has been consulted -Other ddx less likely: drug induced cytopenia, toxin exposure etc. 09/08/20 12:24 09/05 Patient with pancytopenia and fever today his platelets have dropped to 14 compared to 117 upon arrival, patient does not have any complaints of nor there is any bruising patient is clinically stable, communicated with hematology and will give 2 units of platelets and monitor, scheduled for bone Woods biopsy later today, there is slight improvement in white count to 0.9 compared to yesterday 0.6, patient continue to have fever, his blood culture no growth so far, patient being treated with Cefepime and vancomycin patient is seen by ID and work up is in progress. will continue to monitor patient will be seen by hematology and further recommendation to follow. 09/06 yesterday patient received 2 units of platelets and today his platelets are 16 compared 14 yesterday, patient is clinically stable denies any complaint bleeding, bruising, abdominal pain nausea or vomit, patient continue to have fever, patient be seen by hematology and further recommendation to follow, patient is seen by ID suspect patient has patient has fever of unknown origin, a blood cultures so far are negative, Cefepime and vancomycin. patient had a bone marrow biopsy on 09/05 pathology is pending, today patient states his sister had a similar presentation and see seen by same Hematology I have communicated this to the Hematology and further recommendation to follow. 09/07 today again patient platelets trended down to 9 will give 2 units, patient does not have any c/o bleeding or bruising, patient continue to have high fever and feels malaise, blood cultures still no growth, will continue Cefepime and Vancomycin, patient will b be seen by ID, bone marrow biopsy pathology is pending and will be seen by lift mechanic and further recommendation to follow. 09/08 Today again patient platelets are trending down to 10 will give 2 units of platelets and will try to keep platelets close to 20, however patient does not have any complete bleeding or bruising, there is slight improved and patient's white counts are 2.1 today compared low of 0.5, seen hematology suspect most likely secondary to bone marrow pathology as well as enlarged spleen, bone marrow biopsy results are pending, patient seen by ID will stop the vancomycin will continue Cefepime, today patient is sitting in the eating his breakfast will continue to monitor and further recommendation to follow, because of low platelet and increase risk of bleeding PT OT is not ordered. (2) Fever of unknown origin: Code(s): R50.9 - Fever, unspecified Status: Acute Assessment and Plan: Stated 7 days prior to admission -Many lab studies pending -No signs of infection on CT of c/a/p, UA, blood cultures -echo showing:Cannot rule out aortic valve vegetation visualized. Measured 0.8cmx0.7cmbechodense structure unable to be further characterized, however, vegetation a consideration possibly associated
--- NOTE | 2020-09-08 13:11 | PCPTNOTE ---
Spoke with Dr. Barrow per progress note stating to wait on PT/OT. Dr. Barrow stating to hold Physical Therapy evaluation until patients platelet levels increase and therapy approved by physician. Will complete when medically appropriate. Mayte Eubanks, GEMAT
--- NOTE | 2020-09-08 14:31 | PCOTNOTE ---
PT spoke with Dr. Barrow per progress note stating to wait on PT/OT. Dr. Barrow stating to hold therapy evaluations until patient's platelet levels increase and therapy approved by physician. Will complete when medically appropriate.
[2020-09-08 15:21] LABS: Red Blood Cell Folate 698 ng/mL RBC (>280)
[2020-09-09 05:36] LABS: Hematocrit 21.9 % (42.0-52.0); Hemoglobin 7.6 g/dL (14.0-18.0); Immature Granulocyte Absolute 0.03 K/mm3 (0.00-0.031); Lymphocytes Absolute Auto 0.97 K/mm3 (0.9-3.2); Lymphocytes Percent Auto 64.7 % (18.3-44.2); Mean Corpuscular HGB Conc 34.7 g/dl (32-36); Mean Corpuscular Volume 83.6 fl (80-100); Monocytes Absolute Auto 0.2 K/mm3 (0.1-0.6); Neutrophils Absolute Auto 0.3 K/mm3 (1.3-6.7); Neutrophils Percent Auto 21.3 % (45.5-73.1); Red Blood Count 2.62 M/mm3 (4.6-6.20); Red Cell Distribution Width 15.9 % (11.5-14.5)
[2020-09-09 05:48] LABS: White Blood Count 1.5 K/mm3 (4.5-10.0)
[2020-09-09 05:49] LABS: Platelet Count Result 11 k/mm3 (150-375)
[2020-09-09 05:54] LABS: Alanine Aminotransferase 190 U/L (4-50); Albumin Level 2.7 g/dL (3.5-5.1); Alkaline Phosphatase 289 U/L (38-126); Anion Gap 5 mmol/L (8-16); Aspartate Amino Transferase 303 U/L (17-59); Bilirubin,Total 4.3 mg/dL (0.2-1.3); Blood Urea Nitrogen 29 mg/dL (9-20); Calcium 8.5 mg/dL (8.4-10.2); Carbon Dioxide 28 mmol/L (22-30); Chloride 93 mmol/L (98-107); Estimated CRCL calculation 58 ml/min; Estimated Glomerular Filt Rate 59; Glucose 113 mg/dL (65-110); Potassium 3.5 mmol/L (3.4-5.0); Sodium 126 mmol/L (137-145)
[2020-09-09 06:00] VITALS: BP 107/58; PULSE 85; RESP 18; TEMP 37; O2SAT 95
[2020-09-09 06:19] LABS: Large Platelets Present; Ovalocytes 1+ (NORMAL); Platelet Estimate Decreased (Adequate)
--- NOTE | 2020-09-09 07:53 | PCPTNOTE ---
Patient is being discharged from PT list due to MD progress note stating that PT would not be ordered at this time due to patient's condition. Please reorder PT when pt's condition allows.
--- NOTE | 2020-09-09 08:15 | PCOTNOTE ---
Addendum entered by Alison Leon, OT 09/09/20 08:17: 09/09: Pt. order for OT stopped per 's note, that pt. is not appropriate for OT at this time. Original Note: 09/09: Pt. order for OT stopped per 's note, that pt. is not appropriate for OT.
[2020-09-09] MEDS: FERROUS SULFATE 324 MG TABLET PO ×3 (09:04→17:25)
[2020-09-09] MEDS: polyethylene glycoL 3350 17 GM POWD.PACK PO (09:04)
[2020-09-09] MEDS: SODIUM CHLORIDE 1 GM TABLET PO ×2 (09:04→17:25)
[2020-09-09] MEDS: FILGRASTIM-SNDZ 480 MCG/0.8 ML SYRINGE SUB-Q (09:05)
[2020-09-09] MEDS: SODIUM CHLORIDE 0.9% IV 250 ML 30 ML IV CONT (09:07)
[2020-09-09 11:46] VITALS: BP 107/56; PULSE 97; RESP 14; TEMP 36.5; O2SAT 96
--- NOTE | 2020-09-09 11:55 | PM.IMPN ---
Progress Note: A&P Assessment and Plan (1) Pancytopenia with fever: Code(s): D61.818 - Other pancytopenia; R50.81 - Fever presenting with conditions classified elsewhere Status: Acute Assessment and Plan: Patient continues to have pancytopenia with worsening platelet count in a very low white blood cell count - concerning for AML and other diseases such as MDS. Peripheral smear has been ordered. Will need bone marrow biopsy - Dr. Uribe consulted - platelet count [id number] without any evidence of bleeding on exam. If he starts to bleed or drops below 15,000, may consider platelet transfusion - CT C/A/P shows splenomegaly. No s/sx of acute blood loss. Iron panel consistent with XIN. -Cultures and various labs are pending. patient has been negative for HIV, hepatitis, CMV, COVID-19. B12 normal - he was vaccinated in April 2020 - continue antibiotic coverage with cefepime and vancomycin, Infectious Disease has been consulted -Other ddx less likely: drug induced cytopenia, toxin exposure etc. 09/09/20 11:55 09/05 Patient with pancytopenia and fever today his platelets have dropped to 14 compared to 117 upon arrival, patient does not have any complaints of nor there is any bruising patient is clinically stable, communicated with hematology and will give 2 units of platelets and monitor, scheduled for bone Woods biopsy later today, there is slight improvement in white count to 0.9 compared to yesterday 0.6, patient continue to have fever, his blood culture no growth so far, patient being treated with Cefepime and vancomycin patient is seen by ID and work up is in progress. will continue to monitor patient will be seen by hematology and further recommendation to follow. 09/06 yesterday patient received 2 units of platelets and today his platelets are 16 compared 14 yesterday, patient is clinically stable denies any complaint bleeding, bruising, abdominal pain nausea or vomit, patient continue to have fever, patient be seen by hematology and further recommendation to follow, patient is seen by ID suspect patient has patient has fever of unknown origin, a blood cultures so far are negative, Cefepime and vancomycin. patient had a bone marrow biopsy on 09/05 pathology is pending, today patient states his sister had a similar presentation and see seen by same Hematology I have communicated this to the Hematology and further recommendation to follow. 09/07 today again patient platelets trended down to 9 will give 2 units, patient does not have any c/o bleeding or bruising, patient continue to have high fever and feels malaise, blood cultures still no growth, will continue Cefepime and Vancomycin, patient will b be seen by ID, bone marrow biopsy pathology is pending and will be seen by industrial laborer and further recommendation to follow. 09/08 Today again patient platelets are trending down to 10 will give 2 units of platelets and will try to keep platelets close to 20, however patient does not have any complete bleeding or bruising, there is slight improved and patient's white counts are 2.1 today compared low of 0.5, seen hematology suspect most likely secondary to bone marrow pathology as well as enlarged spleen, bone marrow biopsy results are pending, patient seen by ID will stop the vancomycin will continue Cefepime, today patient is sitting in the eating his breakfast will continue to monitor and further recommendation to follow, because of low platelet and increase risk of bleeding PT OT is not ordered. 09/09 bone marrow biopsy results are still pending, today again patient digits are trending down to 10 will give 2 units of platelet and will keep Pletal levels close to 20, however patient does not have any complaint of bleeding or bruising, patient does not have any complaints of abdominal pain nausea or vomiting fever or chills. patient has been afebrile for more than 24 hours, patient's family would like patient to be transferred to a te
[2020-09-09 12:05] VITALS: BP 101/56; PULSE 95; RESP 16; TEMP 36.5; O2SAT 95
[2020-09-09 14:00] VITALS: BP 103/54; PULSE 95; RESP 24; TEMP 36.6; O2SAT 97
[2020-09-09 14:05] VITALS: BP 118/57; PULSE 90; RESP 16; TEMP 36.8; O2SAT 97
[2020-09-12 23:47] LABS: Platelet Antibody, Direct IgG NEGATIVE (NEGATIVE)
--- NOTE | 2020-10-16 09:03 | PM.TDS ---
Transfer Discharge Sum: Prov Provider Date of admission: 09/01/20 23:39 Primary care physician: Quinn Pratt, MD Admitting clinician: Arcelia Heredia MD Consults: 09/01/20 23:41 Consult to Physician Routine Comment: Consulting Provider: Wu Uribe Reason for consultation: neutropenia Has provider been notified: Yes 09/03/20 Consult to Physician Routine Comment: Spoke with Dr. Jackson on the phone Consulting Provider: Masood Jackson sap bi developer/MD group to consult: Infectious disease Reason for consultation: Fever of unknown source with pancytopenia Has provider been notified: Yes DS: Admitting Diagnosis Admitting Diagnosis fever DS: Discharge Diagnosis Discharge Diagnosis (1) Pancytopenia with fever: Code(s): D61.818 - Other pancytopenia; R50.81 - Fever presenting with conditions classified elsewhere Status: Acute (2) Fever of unknown origin: Code(s): R50.9 - Fever, unspecified Status: Acute Assessment and Plan: Stated 7 days prior to admission -Many lab studies pending -No signs of infection on CT of c/a/p, UA, blood cultures -echo showing:Cannot rule out aortic valve vegetation visualized. Measured 0.8cmx0.7cmbechodense structure unable to be further characterized, however, vegetation a consideration possibly associated with noncoronary cusp. -consider WHITNEY (3) Neutropenia: Code(s): D70.9 - Neutropenia, unspecified Status: Acute Assessment and Plan: As above. continue to monitor (4) Hyponatremia: Code(s): E87.1 - Hypo-osmolality and hyponatremia Status: Acute Assessment and Plan: Serum sodium is 125 today (worsening) -will order urine sodium. Pt not on any diuretics -He appears euvolemic at this current time -Continue to monitor. He is asymptomatic. -LR stopped 09/03/20 (5) Constipation: Code(s): K59.00 - Constipation, unspecified Status: Acute Assessment and Plan: Resolved Transfer Discharge Sum: Med Medications Active and Home Medications: Home Medications atorvastatin 10 mg PO DAILY 08/21/20 [History Confirmed 09/02/20] eszopiclone 3 mg PO HS 09/02/20 [History Confirmed 09/02/20] Transfer Discharge Sum: Hosp Hospital Course Hospital course: Patient was transferred on 09/10/2020 Mir Adrian is a 75 year old male 09/05 Patient with pancytopenia and fever today his platelets have dropped to 14 compared to 117 upon arrival, patient does not have any complaints of nor there is any bruising patient is clinically stable, communicated with hematology and will give 2 units of platelets and monitor, scheduled for bone Woods biopsy later today, there is slight improvement in white count to 0.9 compared to yesterday 0.6, patient continue to have fever, his blood culture no growth so far, patient being treated with Cefepime and vancomycin patient is seen by ID and work up is in progress. will continue to monitor patient will be seen by hematology and further recommendation to follow. 09/06 yesterday patient received 2 units of platelets and today his platelets are 16 compared 14 yesterday, patient is clinically stable denies any complaint bleeding, bruising, abdominal pain nausea or vomit, patient continue to have fever, patient be seen by hematology and further recommendation to follow, patient is seen by ID suspect patient has patient has fever of unknown origin, a blood cultures so far are negative, Cefepime and vancomycin. patient had a bone marrow biopsy on 09/05 pathology is pending, today patient states his sister had a similar presentation and see seen by same Hematology I have communicated this to the Hematology and further recommendation to follow. 09/07 today again patient platelets trended down to 9 will give 2 units, patient does not have any c/o bleeding or bruising, patient continue to have high fever and feels malaise, blood cultures still no gr
== END 2020-09-09 18:16 | disposition short-term general hospital (02) | DRG 809 ==
LOC: ANHED 23:54 → ANH2MED 09-02 07:00
PROVIDERS: Emergency Medicine; Family Medicine; Internal Medicine Critical Care Medicine; Internal Medicine Hematology & Oncology; Internal Medicine Infectious Disease; Physician Assistant; Radiology Diagnostic Radiology; Admitting Provider Internal Medicine; Emergency Provider Emergency Medicine; PCP Internal Medicine; Visit Provider Physician Assistant
PROC: 07DR3ZX Extraction of Iliac Bone Marrow, Percutaneous Approach, Diagnostic (ICD-10-PCS; principal; 2020-09-05 12:00)
DX: D61.818 Other pancytopenia (principal); E87.1 Hypo-osmolality and hyponatremia; D70.9 Neutropenia, unspecified; R50.81 Fever presenting with conditions classified elsewhere; K59.00 Constipation, unspecified
CPT/HCPCS: 36415; 36430; 38222; 71046; 71250; 74176; 80048; 80053; 80076; 80202; 81001; 82550; 82565; 82607; 82747; 83540; 83550; 83605; 83615; 83735; 83921; 84300; 84443; 84466; 85025; 85046; 85055; 85610; 85730; 86023; 86480; 86666; 86703; 86850; 86900; 86901; 87040; 87385; 88184; 88185; 88305; 88311; 88313; 88341; 88342; 88365; 93306; 99285; A9270; G0432; J0692; J1642; J2405; J3010; J3370; J3475; J7040; J7050; J7120; P9034; Q5101